=== PATIENT | male | born 1945 | race Caucasian/White ===

== ENCOUNTER 2018-02-09 12:42 | Inpatient (IN) ==
[2018-02-09] MEDS ORDERED: ASPIRIN PR ONE (13:01)
[2018-02-09] MEDS ORDERED: ASPIRIN PO ONE (13:01)
--- NOTE | 2018-02-09 13:14 | Diag Imaging Result Doc PS360 ---
EXAM: CHEST-1 VIEW INDICATION: palpitations TECHNIQUE: One view COMPARISON: None. FINDINGS: The lung volumes are low. Central vasculature is prominent. This indicates pulmonary venous congestion. There is also evidence of at least mild interstitial edema. There is opacification of the left lung base suggesting a small to moderate-sized effusion. Cardiac silhouette is somewhat prominent. IMPRESSION: Findings suggesting pulmonary venous congestion and interstitial edema with a left basilar effusion as described. Electronically signed by Lyndon Hardy 02/09/2018 1:11 PM
[2018-02-09] MEDS ORDERED: LASIX IV ONE (13:30)
[2018-02-09 14:27] LABS: BASO# 0.04 X1000 (0.0-0.2); BASO% 0.4 % (0.0-0.8); EOS# 0.19 X1000 (0.0-0.7); EOS% 1.7 % (0.0-10.0); HEMATOCRIT 29.9 % (42.0-52.0); HEMOGLOBIN 9.5 g/dL (14.0-18.0); IMM GRAN# 0.09 X1000 (0.0-0.04); IMM GRAN% 0.8 % (0.0-0.5); LYMPH# 1.38 X1000 (1.2-3.4); LYMPH% 12.6 % (20.5-51.1); MCH 28.4 PG (27-31); MCHC 31.8 g/dL (33-37); MCV 89.3 FL (81-99); MONO# 1.25 X1000 (0.11-0.59); MONO% 11.4 % (1.7-9.3); MPV 12.5 FL (7.4-10.4); NEUT# 8.02 X1000 (1.4-6.5); NEUT% 73.1 % (42.2-75.2); PLT 224 X1000 (130-400); RBC 3.35 XMIL (4.7-6.1); RDW 19.6 % (11.5-14.5); WBC 10.97 X1000 (4.8-10.8)
[2018-02-09 14:31] LABS: INR 1.33; PROTIME 17.5 Seconds (11.0-16.0); PTT 35.9 Seconds (22.3-41.8)
[2018-02-09 14:38] LABS: ALB/GLOB RATIO 1.1; ALBUMIN 3.1 g/dL (3.5-5.0); CALCIUM 8.2 mg/dL (8.8-10.2); CREATININE 1.3 mg/dL (0.7-1.2); POTASSIUM 2.8 mmol/L (3.5-5.1); TOTAL BILIRUBIN 1.56 mg/dL (0.20-1.00); TOTAL PROTEIN 5.9 g/dL (6.3-8.3)
[2018-02-09] MEDS ORDERED: POTASSIUM CHLORIDE 40 MEQ/SWI 40 MEQ/100 ML IVPB IV ONE (14:58)
[2018-02-09] MEDS ORDERED: POTASSIUM CHLORIDE 60 MEQ in NS 500 ML IV ONE (15:25)
--- NOTE | 2018-02-09 15:37 | Diag Imaging Result Doc PS360 ---
EXAM: XRAY PELVIS W/HIP 2-3VW RT INDICATION: right hip pain; r/o fracture TECHNIQUE: 3 views COMPARISON: None. FINDINGS: There is degenerative arthropathy at both hips with joint space narrowing and small marginal osteophyte formation. There is degenerative arthropathy at the lower lumbar spine. There is no discrete fracture, dislocation, or significant intrinsic osseous lesion, otherwise. The surrounding soft tissues are essentially unremarkable. IMPRESSION: Degenerative changes but no evidence of fracture. Electronically signed by Lyndon Hardy 02/09/2018 3:34 PM
[2018-02-09] MEDS ORDERED: LOVENOX 1 MG/KG SUBQ ONE ×2 (16:41→17:03)
[2018-02-09] MEDS: LASIX IV SCH (17:00)
--- NOTE | 2018-02-09 17:29 | Diag Imaging Result Doc PS360 ---
EXAM: FOOT COMPLETE RIGHT INDICATION: wounds to right 2cd and 5th toe TECHNIQUE: 3 views COMPARISON: None. FINDINGS: There is degenerative arthropathy at multiple IP joints, the first MTP joint, and at the dorsum of the midfoot. There is ossification of the plantar fascia just inferior to the calcaneus. I can identify no well-defined erosion involving the second for the fifth toe by plain radiograph to indicate osteomyelitis. There is no discrete fracture, dislocation, or significant intrinsic osseous lesion, otherwise. There is generalized soft tissue edema at the dorsum of the foot. IMPRESSION: Significant soft tissue edema and degenerative changes but no definite acute osseous abnormality. Electronically signed by Lyndon Hardy 02/09/2018 5:27 PM
--- NOTE | 2018-02-09 17:37 | HISTORY AND PHYSICAL ---
PRIMARY CARE PHYSICIAN: Dr. López Osborne. CHIEF COMPLAINT: "I just don't feel good." HISTORY OF PRESENT ILLNESS: Mr. Stevens is a 72-year-old male with recently diagnosed systolic heart failure, diabetes mellitus, hypothyroidism, who presents to the ER with symptoms of not feeling well. The patient is unable to really specify exactly what he means by that. A thorough review of systems does reveal profound edema, shortness of breath, malaise, abdominal distention. Mr. Stevens has not seen a provider in 50 years, per his report, until November of this year. He went to see Dr. Osborne. He was put on metformin for diabetes and Synthroid for hypothyroidism. He also had an echocardiogram done for swelling, which showed an EF of 20%. He went back in December to Dr. Osborne, who stopped the metformin due to edema and adjusted his cardiac medications. Since that time, Mr. Stevens has had continued edema, abdominal distention, and he is also having urinary hesitancy and low urine flow. He denies any overt chest pain, no fever, and no chills. He is short of breath and extremely edematous. He denies any overt abdominal pain but does endorse abdominal distention. No vomiting. No diarrhea. There are some loose stools, per his report. When he got to the ER today, he had multiple labs and diagnostics done. He was noted to be in congestive heart failure with evidence of such on chest x-ray, also with the proBNP of almost 7000. He was noted to have mild renal insufficiency as well as elevated liver functions. He was also noted to be hypokalemic and anemic. EKG does reveal atrial fibrillation, which is new for the patient. So, overall the patient has new onset congestive heart failure and atrial fibrillation with multiple other medical problems and will need admission to the CICU for comprehensive workup. PAST MEDICAL HISTORY: 1. Recent diagnosis of systolic heart failure. 2. Recent diagnosis of diabetes mellitus. 3. Recent diagnosis of hypothyroidism. 4. Reports of hepatitis as a teenager for which he had a liver biopsy. He does not know which specific hepatitis he had. PAST SURGICAL HISTORY: Liver biopsy. SOCIAL HISTORY: He denies having ever used tobacco products. He drinks very rarely. Denies drug use. Family is at the bedside. FAMILY HISTORY: Significant for coronary artery disease and congestive heart failure in his father. His father at 89 years old. REVIEW OF SYSTEMS: A thorough 14-point review of systems is obtained and found to be negative with the exception of the HPI. HOME MEDICATIONS: Bumex 1 mg b.i.d., glimepiride 1 mg p.o. a.m., Synthroid 50 mcg daily, lisinopril 5 mg p.o. a.m., Toprol XL 25 mg p.o. daily, Aldactone 12.5 mg p.o. a.m. ALLERGIES: No known drug allergies. PHYSICAL EXAMINATION: VITAL SIGNS: Blood pressure is 90/62, heart rate is 88, respiratory rate 18, O2 saturation is 95% on room air, temperature is 98 degrees Fahrenheit. GENERAL: This is a morbidly obese, male, who is disheveled and in poor health, lying in the hospital bed in no acute distress. NEUROLOGICAL: He follows commands. He is oriented. Exam is nonfocal. HEENT: Head is atraumatic and normocephalic. Pupils are equal, round and reactive to light. Oral mucosa is moist. NECK: Trachea is midline. CHEST: Crackles in the lung bases. Slight increased work of breathing noted. CARDIOVASCULAR: Irregular rate and rhythm. S1 and S2 is noted. GASTROINTESTINAL: Distended with anasarca noted. There is also bladder distention but no overt tenderness to palpation. Bowel sounds are hypoactive. EXTREMITIES: Greater than 2+ pitting edema bilaterally. He has multiple wounds to the right foot, specifically the right second toe and between the fourth and fifth toe. These appear as ulcerations and possibly with some eschar or necrotic tissue. DIAGNOSTIC DATA: Chest x-ray shows low lung volumes, pulmonary vascular congestion. Hip and pelvis x-ray shows degenerative changes, but no overt fracture. Telemetry shows atrial fibrillation, rate controlled, awaiting EKG. WBC is 10.97, hemoglobin 9.5, hematocrit 29.9, platelet count 224. INR 1.33. Sodium 141, potassium 2.8, chloride 101, CO2 24, anion gap 16, BUN 26, creatinine 1.3, glucose 121, calcium 8.2. Total bilirubin 1.56, AST 13, ALT 8, alkaline phosphatase 71. Troponin 0.076. proBNP 6707. Protein 5.9, albumin 3.1. ASSESSMENT AND PLAN: 1. Acute systolic congestive heart failure: The patient had an echocardiogram done about two months ago, which showed global hypokinesis with an ejection fraction of 20% . He will need comprehensive cardiac evaluation. We have consulted Cardiology. We will continue to trend his enzymes. Will continue intravenous diuresis to an edema free state. Will check his thyroid function, lipid panel, and hemoglobin A1c. Will check iron studies, as he is anemic. Will continue to watch his telemetry and will consult nutrition for heart failure diet. 2. New onset atrial fibrillation: Rate is controlled. Trending enzymes, checking thyroid function, echocardiogram noted as above. Will consult Cardiology. Given his comorbidities his MARIA DOLORES score is elevated, which would indicate the need for anticoagulation, however given his anemia with a hemoglobin of 9.5, will check his iron studies and occult stool. There is likely a large element of anemia of chronic disease. 3. Acute kidney injury: This is likely to be chronic. Creatinine only noted to be 1.3. Will check urine studies and abdominal ultrasound. 4. Hypokalemia: Will check a magnesium. Continue replacement as needed and check electrolytes daily given the amount of diuresis given. 5. Elevated liver function tests: The patient does have an elevated INR as well as reported history of hepatitis. It is unclear if he has a form of viral hepatitis, however he also has clear congestive heart failure, so congestive hepatopathy is likely. Hepatitis panel is pending as well as an abdominal ultrasound to look at his liver. He denies any history of intravenous drug use or history of alcohol use. 6. Normocytic anemia: Iron studies pending. Denies melena or hematochezia. Will check occult stool as well. 7. Diabetes mellitus: Checking hemoglobin A1c. Will add patterned sugars and sliding scale insulin. 8. Right foot ulcers: This is likely to be diabetic ulceration. Will check an x-ray of his foot to rule out osteomyelitis or fractures and treat as necessary. 9.Bladder distention and urinary hesitancy: Checking a PSA as well as bladder scan. Will put in a Archuleta if volume is large, which on physical exam appears to be. Deep venous thrombosis prophylaxis with Lovenox. Further recommendations to follow. Dictated by EULOGIO Lisa for Dayday Jaquez MD Addendum: Patient seen and examined by myself. Agree with EULOGIO note. It reflects my assessment and plan. Patient is being admitted to hospital for systolic congestive heart failure exacerbation. He is in anasarca and he has not been seen by a doctor in 40 years except his visit to PCP last november when all medical conditions were diagnosed. Will continue with Lasix and will monitor renal function closely. Also transaminases are elevated, most likely related to passive vascular congestion secondary to right heart failure. He also is on new onset atrial fibrillation. Will consult Cardiology. Also creatinine is mildy elevated. Will follow. Will continue with insulin for diabetes control. cc: EULOGIO Lisa MD Jeb S. Hornsby, MD MTDD
--- NOTE | 2018-02-09 17:55 | PROVIDER DOCUMENTATION ---
This chart was entered by Niya Crawford Scribe, acting as scribe for Alok Roland MD. HPI-General Adult - General Chief Complaint: Palpitations Stated Complaint: AFIB Time Seen by Provider: 02/09/18 13:01 Source: patient, family Allergies/Adverse Reactions: Patient Allergies Allergy/AdvReac Type Severity Reaction Status Date / Time No Known Allergies Allergy Verified 02/09/18 13:03 Home Medications: Home Medication List Medication Instructions Recorded Confirmed Last Taken Type Bumetanide 1 mg PO BID 02/09/18 02/09/18 1 Day Ago History ~02/08/18 Glimepiride 1 mg PO QAM 02/09/18 02/09/18 02/09/18 History Levothyroxine [Synthroid] 50 microgm PO DAILY 02/09/18 02/09/18 02/09/18 History Lisinopril 5 mg PO QAM 02/09/18 02/09/18 02/09/18 History Metoprolol Succinate E.r. [Toprol 25 mg PO DAILY 02/09/18 02/09/18 02/09/18 History Xl] Spironolactone 12.5 mg PO QAM 02/09/18 02/09/18 Unknown History - History of Present Illness -Gen Adult Nature of Presenting Problems: 72 yowm presents to the ed with his family via ems. pt speaks mostly for pt due to pt being hard of hearing. sts pt has c/o not feeling well for last few days with increased edema in abdomen and BLE edema and scrotal edema. pt has had n/v with decreased appetite and sob. pt looks to not feel Location of Pain/Injury: reports: generalized Quality of Pain: reports: aching Severity: reports: moderate Onset/Duration: reports: 3 days ago ("few days") Timing: reports: still present, constant Context/Activities at Onset: reports: light activity Modifying Factors: improves with: nothing Associated Symptoms: reports: fatigue, heartburn, loss of appetite, malaise, muscle aches, nausea, shortness of breath, vomiting, weakness, trouble walking. denies: back/neck pain, chest pain, cough, diarrhea, fever/chills, headaches Similar Symptoms Previously?: Yes Recently seen or treated by another doctor?: No (has an appointment tomorrow with pcp) - Diabetes Related Context Context: reports: high blood sugar Review of Systems - Adult - REVIEW OF SYSTEMS - ADULT ROS:: ROS per family (per ) Constitutional: reports: see HPI, fatique. denies: chills, fever Eyes: reports: no symptoms reported Ears, Nose, Mouth & Throat: reports: no symptoms reported Cardiovascular: reports: chest pain, edema. denies: syncope Respiratory: reports: see HPI, shortness of breath. denies: cough Gastrointestinal: reports: see HPI, abdominal pain (with edema), frequent heartburn, nausea, poor appetite, vomiting. denies: diarrhea Genitourinary: reports: see HPI, incontinence (wears a diaper), other (scotal edema) Musculoskeletal: reports: see HPI, muscle aches, muscle weakness. denies: neck pain Integumentary: reports: skin sores/ulcer (multiple on bilateral feet and left hand) Neurological: denies: dizziness/vertigo, headache/migraines, slurred speech, syncope, tremors Psychiatric: reports: no symptoms reported Endocrine: reports: no symptoms reported Hematologic/Lymphatic: reports: no symptoms reported Allergic/Immunologic: reports: no symptoms reported All Other Systems: Reviewed and Negative Past History - Adult - PAST MEDICAL HISTORY-ADULT Review of Records: reports: Old Records Reviewed, Nursing Assessment Review, Medications Reviewed, Social history reviewed & non-contributory. Major Childhood Illnesses: reports: other (hepatitis) Cardiovascular: reports: A-Fib, HTN, hyperlipidemia Respiratory: reports: denies history Gastrointestinal: reports: GERD Genitourinary: reports: kidney disease Musculoskeletal: reports: arthritis Hand Dominance: Right Handed Neurological: reports: denies history Psychiatric: reports: denies history Endocrine/Immune: reports: Diabetes, thyroid disorder Diabetes Type: Type 2 Other Conditions: reports: deaf/hard of hearing - PRIOR SURGERIES/PROCEDURES Surgical/Procedure History: reports: reviewed, not pertinent - IMMUNIZATION STATUS Childhood Immunizations: See Nurse Assessment Flu Vaccine: See Nurse Assessment - FAMILY HISTORY Family History: reviewed, not pertinent - SOCIAL HISTORY Smoking: denies Substance Use: denies Living Situation: family Physical Exam-General - PHYSICAL EXAM-ADULT Initial Vital Signs Reviewed: Yes - CONSTITUTIONAL General Appearance: alert, moderate distress, obese, slow to respond, other ( debilitated looking). negative: appears well - EYES Eyes: PERRL/EOMI, pale conjunctivae - HEAD, EARS, NOSE, MOUTH & THROAT HENMT: dental decay. negative: moist mucous membranes - NECK Neck: full range of motion, normal inspection - RESPIRATORY Respiratory: chest non-tender, lungs clear, normal breath sounds - CARDIOVASCULAR Cardiovascular: normal peripheral pulses, regular rate, rhythm - CHEST (BREASTS) Chest/Breast: deferred - GASTROINTESTINAL (ABDOMEN) Abdominal Exam: normal bowel sounds, soft, distended, tenderness (generalized). negative: rigid, rebound - GENITOURINARY Male Genitalia: scrotal swelling. negative: herpes-like lesion Rectal Exam: deferred Hemoccult Exam: deferred - LYMPHATIC Lymphatic: no adenopathy - MUSCULOSKELETAL Back Exam: normal inspection, no CVA tenderness, no vertebral tenderness Extremity: erythema (BLE), pedal edema (bilateral), swelling (BLE 4+ pitting , extending all the way to groin and abdominal wall), other (nails on bilateral feet ae thick and brown, pt has multiple sores on feet in diffrent stages of healing) - SKIN Integumentary: warm/dry - NEUROLOGIC Neurologic: grossly normal - PSYCHIATRIC Psych/Mental Status: oriented x 3 Progress - PLAN OF CARE/RESULTS Progress/Plan/Lab Results: Vital Signs - 8 hr 02/09/18 12:42 02/09/18 13:18 Temperature 98.1 F Pulse Rate 89 82 Respiratory Rate 16 18 Blood Pressure 108/76 O2 Sat by Pulse Oximetry 95 93 L Orders Category Date Time Status Cardiac Monitoring DIRECTED Care 02/09/18 13:01 Active Oxygen Therapy- ED Nursing DIRECTED Care 02/09/18 13:01 Active Saline Loc NOW Care 02/09/18 13:01 Active CHEST-1 VIEW [RAD] Stat Exams 02/09/18 13:01 Completed CBC WITH ELECTRONIC DIFF [HEME] Stat Lab 02/09/18 13:02 Ordered CK PROFILE [SP CHEM] Stat Lab 02/09/18 13:02 Ordered COMPREHENSIVE METABOLIC PANEL [CHEM] Stat Lab 02/09/18 13:02 Ordered PRO B-NATRIURETIC PEPTIDE Stat Lab 02/09/18 13:02 Ordered PROTIME WITH INR [COAG] Stat Lab 02/09/18 13:02 Ordered PTT [COAG] Stat Lab 02/09/18 13:02 Ordered TROPONIN T Stat Lab 02/09/18 13:02 Ordered Aspirin Med 02/09/18 13:01 Discontinued 300 mg VA NOW ONE Aspirin Med 02/09/18 13:01 Discontinued 325 mg PO NOW ONE Furosemide [Lasix] Med 02/09/18 13:30 Discontinued 80 mg IV NOW ONE CP/SOB/Palp >45 yrs of Age Stat Oth 02/09/18 13:01 Ordered EKG [EKG] Stat Ther 02/09/18 12:47 Ordered Result Diagrams: 02/09/18 13:03 02/09/18 13:03 - REASSESSMENT Reassessment #1 Time Reassessed: 13:50 Status: unchanged (provider at bedside) - EKG 1 Time of EKG reading by physician:: 12:44 EKG Read and Signed by:: Alok Roland EKG Interpretation (*Must complete 3 of following elements*): Abnormal Rate: 92 Rhythm: atrial fib [place]: normal QRS: other (low voltage qrs) VA Interval: normal Comments: annot rule out inferior or anterior infarct, age undetermined - XRAY 1 XRAY: Bilateral XRAY Study: Chest (EXAM: CHEST-1 VIEW INDICATION: palpitations TECHNIQUE: One view COMPARISON: None. FINDINGS: The lung volumes are low. Central vasculature is prominent. This indicates pulmonary venous congestion. There is also evidence of at least mild interstitial edema. There is opacification of the left lung base suggesting a small to moderate-sized effusion. Cardiac silhouette is somewhat prominent. IMPRESSION: Findings suggesting pulmonary venous congestion and interstitial edema with a left basilar effusion as described. Electronically signed by Lyndon Hardy 02/09/2018 1:11 PM 02/09/18 1311 Interpreting Physician: Lyndon Hardy MD Dictated Date/Time: 1310 cc: Mani Hobson MD; López Osborne MD) - CONSULTS/PCP/HOSPITALIST Notification #1 *Consult/PCP/Hospitalist*: CHRISTINE Parry/Dr. Morgan Time Discussed: 15:23 Consult Disposition: Admit Departure - Departure Date of Disposition Decision: 02/09/18 Time of Disposition Decision: 15:23 DIAGNOSIS: Anasarca, Hypokalemia Pulmonary edema Qualifiers: Chronicity: acute Qualified Code(s): J81.0 - Acute pulmonary edema Disposition: ADMITTED INPATIENT 09 Certified Medical Emergency: Emergent Condition: Serious Referrals and Follow-Ups: López Osborne MD [Primary Care Provider] - - Critical Care Note This patient required my direct & personal management of CC.: Yes Total Time (mins): 42 Critical Care Statement: This patient required my direct personal management to treat or rule out processes, the absence of which, could potentiallly result in sudden, clinically significant life or limb threatening deterioration. Attestation - Physician/ ANNA Attestation Patient care was provided by Advanced Practice Provider:: No The physician spent face to face time with patient:: Yes Advanced Practice Provider documentation review:: Supervising physician onsite and consulted in the evaluation and care of this patient. The physician did have a face to face encounter with the patient. This chart was documented by the indicated scribe, (Niya Crawford Scribe) and accurately reflects the services I performed and decisions made by me, Alok Roland MD, as attested by the provider's signature.
[2018-02-09 18:24] LABS: HEMOGLOBIN A1C 5.8 % (4.8-6.0)
[2018-02-09 18:48] LABS: IRON SATURATION 9 %; TIBC 265 ug/dL; TOTAL IRON 23 ug/dL (53-167); UNBOUND IRON 242 ug/dL (112-346)
[2018-02-09 19:16] LABS: UR CREAT RANDOM 42.3 mg/dL (14-26); UR PROT RANDOM 9.1 mg/dL
[2018-02-09] MEDS: DUONEB (A & A) INH SCH ×2 (19:26→23:18)
[2018-02-09] MEDS ORDERED: LOVENOX SUBQ ONE (19:30)
[2018-02-09] MEDS: HUMULIN R SUBQ SCH (21:00)
[2018-02-10] MEDS ORDERED: ZOFRAN ONE (00:17)
[2018-02-10] MEDS ORDERED: ZOFRAN IV ONE (01:10)
[2018-02-10 01:22] LABS: ALLEN TEST YES; BE 9.4 mmoll (-3.0-3.0); BLOOD TYPE ARTERIAL; HCO3-(ACT) 32.3 mmoll (20.0-26.0); METHB 0.6 % (0.0-1.5); MODALITY CANNULA; O2(CT) 12.8 mL/dL (15.0-23.0); PCO2(98.6) 37 mmHg (35-45); PO2(98.6) 78 mmHg (60-100); SAMPLE BLOOD; SAO2 98.7 % (95.0-100.0); THB 9.4 g/dL (11.5-17.4); pH(98.6) 7.55 (7.35-7.45)
[2018-02-10] MEDS: DUONEB (A & A) INH SCH ×5 (03:21→23:05)
[2018-02-10 05:42] LABS: BASO# 0.03 X1000 (0.0-0.2); BASO% 0.3 % (0.0-0.8); EOS# 0.05 X1000 (0.0-0.7); EOS% 0.5 % (0.0-10.0); HEMATOCRIT 28.4 % (42.0-52.0); HEMOGLOBIN 8.8 g/dL (14.0-18.0); IMM GRAN# 0.07 X1000 (0.0-0.04); IMM GRAN% 0.6 % (0.0-0.5); LYMPH# 1.32 X1000 (1.2-3.4); LYMPH% 12.1 % (20.5-51.1); MCV 90.4 FL (81-99); MONO# 1.14 X1000 (0.11-0.59); MONO% 10.5 % (1.7-9.3); MPV 12.2 FL (7.4-10.4); NEUT# 8.29 X1000 (1.4-6.5); PLT 241 X1000 (130-400); RBC 3.14 XMIL (4.7-6.1); RDW 19.8 % (11.5-14.5)
[2018-02-10] MEDS: LASIX IV SCH ×2 (06:28→17:37)
[2018-02-10] MEDS: HUMULIN R SUBQ SCH ×4 (07:00→20:43)
--- NOTE | 2018-02-10 07:07 | Diag Imaging Result Doc PS360 ---
EXAM: CHEST-PORTABLE 02/10/2018 HISTORY: Dyspnea TECHNIQUE: AP portable at 0122 COMMENT: There is hazy opacity in both lower lung krishnamurthy with obscuration of the left hemidiaphragm and heart border. These findings were also present at the time the previous study of 02/09/2018 however there is slightly worsened opacification in the right costophrenic angle region. IMPRESSION: Pulmonary edema and/or pneumonia slightly worsened. Electronically signed by Enrico Mohan 02/10/2018 7:05 AM
--- NOTE | 2018-02-10 07:20 | EKG Report ---
Test Performed on : 02/09/2018 12:44:02 PM Test Reason : elevate hr Blood Pressure : / mmHG Vent. Rate : 092 BPM Atrial Rate : 108 BPM P-R Int : 000 ms QRS Dur : 092 ms QT Int : 376 ms P-R-T Axes : 000 -10 167 degrees QTc Int : 464 ms Atrial fibrillation. Low voltage QRS Cannot rule out Inferior infarct , age undetermined Cannot rule out Anterior infarct , age undetermined Abnormal ECG No previous ECGs available Unconfirmed Result
--- NOTE | 2018-02-10 08:22 | Diag Imaging Result Doc PS360 ---
EXAM: US ABDOMEN-COMPLETE 02/10/2018 HISTORY: ascites, domenic, elevated lfts TECHNIQUE: Abdominal ultrasound COMMENT: There is antegrade flow in the portal vein. The pancreas is obscured. The visualized portions of the aorta and inferior vena cava are within normal limits. The gallbladder contains small stones in the fundus. There is no evidence of para cholecystic fluid. There is no sonographic Louie sign. There is dilatation of the common bile duct to almost 9 mm. The kidneys are without evidence of hydronephrosis or mass, there is an 11 mm cyst in the upper pole of the right kidney. The spleen is not enlarged. The liver is otherwise unremarkable in appearance. IMPRESSION: Cholelithiasis. No evidence of obstructive uropathy. Dilatation of the common bile duct of uncertain etiology. Electronically signed by Enrico Mohan 02/10/2018 8:20 AM
--- NOTE | 2018-02-10 08:28 | PROGRESS NOTE ---
DATE: 02/10/2018 SUBJECTIVE: The patient notes that he just feels awful. States he feels terrible. He is unable to quantify any of this. Denies any chest pains or palpitations. Denies any fevers or chills. Denies any diarrhea, constipation, Denies any urologic problems. Denies any pain or palpitations. Denies shortness of breath. PHYSICAL EXAMINATION: Vital Signs: He is afebrile, pulse 102, respiratory rate 74, BP 104/73. General: The patient is awake, alert, and oriented. He is in no current respiratory distress. HEENT: Normocephalic and atraumatic. PERRL. Neck: Supple. Cardiovascular: Regular rate. Chest: Decreased breath sounds bilaterally. Extremities: There is 2+ pitting edema in bilateral lower extremities. Labs: Reviewed. ASSESSMENT: 1. Diastolic congestive heart failure in exacerbation. Patient had 4 liters out negative yesterday. 2. Onset atrial fibrillation. Currently rate controlled. 3. Hypokalemia improved. 4. Diabetes. 5. Right foot ulceration. PLAN: We will continue the patient in the hospital. Continue IV Lasix. Cardizem as needed. Continue to follow his clinical course. Expect that he will be in the hospital 3 to 4 more days. cc: Da Vásquez MD MTDD
[2018-02-10 08:45] LABS: ALB/GLOB RATIO 0.9; ALBUMIN 2.7 g/dL (3.5-5.0); CALCIUM 7.5 mg/dL (8.8-10.2); CREATININE 1.3 mg/dL (0.7-1.2); POTASSIUM 2.8 mmol/L (3.5-5.1); TOTAL BILIRUBIN 1.83 mg/dL (0.20-1.00); TOTAL PROTEIN 5.8 g/dL (6.3-8.3)
[2018-02-10] MEDS ORDERED: ZOFRAN IV PRN (08:50)
[2018-02-10] MEDS ORDERED: ASPIRIN PO SCH (09:00)
[2018-02-10] MEDS: TOPROL XL PO SCH (11:26)
[2018-02-10] MEDS: SYNTHROID PO SCH (11:27)
[2018-02-10] MEDS: PRINIVIL PO SCH (11:27)
[2018-02-10 11:32] LABS: HEPATITIS PROFILE ACUTE SEE COMMENTS
--- NOTE | 2018-02-10 12:01 | CARDIOLOGY CONSULTATION ---
DATE: 02/10/2018 REASON FOR CONSULTATION: Patient is admitted with multiple medical problems. Cardiology was consulted for severe LV dysfunction, atrial fibrillation. HISTORY OF PRESENT ILLNESS: Mr. Stevens is a 72-year-old gentleman with history of recent diagnosis of severe LV dysfunction, hypothyroid, diabetes, and heart failure. He comes in with increasing swelling, shortness of breath, and malaise. He has not seen a family physician for the last 50 years, recently had seen Dr. Osborne in the office. His recent echocardiogram revealed ejection fraction of 20%. Medications were adjusted. The patient came in with increasing symptoms of shortness of breath and pedal edema. He denies chest pain. Over the last few years, he had not had any chest pain. However, he had noticed that he was mildly short of breath, which recently worsened. There is no palpitations. There is no dizziness or syncope. He was noted to be hypokalemic and in atrial fibrillation as well. REVIEW OF SYSTEMS: A 14-point review of system was done.GI System: Patient had episode of what sounds like food poisoning, and he had significant nausea and vomiting prior to coming here, and they had eaten outside. However, no hematemesis or melena. Central nervous system: No focal weakness to suggest a CVA or TIA. System: There is no dysuria or hematuria. Respiratory System: There is no history of cough, fevers, or chills. PAST MEDICAL HISTORY: 1. Severe LV dysfunction, new, recent diagnosis of systolic heart failure. 2. Hypothyroidism. 3. Hepatitis as a teenager. PAST SURGICAL HISTORY: Liver biopsy. HOME MEDICATIONS: All started recently include Bumex 1 b.i.d., glimepiride 1, Synthroid 50, lisinopril 5, Toprol-XL 25, Aldactone 12.5. ALLERGIES: He is not known to be allergic to any medication. PHYSICAL EXAMINATION: Vital Signs: Blood pressure was 104/60. Neck: Jugular venous pressure was normal. Heart: First and second heart sounds were heard. There was no S3 gallop. Respiratory: Revealed scattered inspiratory crepitations. Abdomen: Was soft, obese, nontender. There was no guarding or rigidity. Bowel sounds were heard. Central nervous system: Alert, was moving all 4 extremities. Extremities: Revealed pitting pedal edema. Skin: In addition, patient had multiple unspecified eschars and ulcerations on his right second toe, fourth and fifth toes as well. DIAGNOSTIC DATA: 1. Chest x-ray reveals pulmonary venous congestion. Degenerative joint disease. 2. No fractures noted on the hip. 3. Electrocardiogram revealed atrial fibrillation, rate of 92 beats per minute. 4. WBC 10.97, hemoglobin 9.5, hematocrit 29, platelet count of 224. INR 1.3. Sodium 141, potassium 2.8, BUN 26, creatinine 1.3. ProBNP 6707. Bilirubin 1.56, AST 13, ALT 8, alkaline phosphatase 71. Troponin negative. ASSESSMENT AND PLAN: Mr. Eric Stevens is a 72-year-old gentleman, who had recently seen Dr. Osborne in the office. Had not seen a physician in the last 50 years, was recently diagnosed to have heart failure, severe left ventricular dysfunction of ejection fraction of 20%, diabetes, and hypothyroidism as a child. He has also had hepatitis. He is admitted with increasing shortness of breath, was given Lasix, and had a good amount of diuresis of 5 liters and currently, he is on Lasix 40 mg twice daily. RECOMMENDATIONS: 1. He has severe LV dysfunction, and this probably has been for some time. The recent echocardiogram revealed ejection fraction of 20%. We will start him and put him back on his lisinopril as well as Toprol-XL and Aldactone 25 mg a day. 2. As far as atrial fibrillation, concern could be multifactorial. He has severely hypokalemic, and given his LV dysfunction as well, this may either be paroxysmal. I have no other EKG to compare with or it may be triggered with severe hypokalemia. His potassium is being repleted, and will be checked routinely. 3. As far as anticoagulation is concerned, there is no obvious GI bleed. This could be anemia of chronic disease. However, stool occult blood and iron studies are pending and once there is no bleeding, would recommend anticoagulation therapy with Eliquis for stroke prophylaxis. 4. He has features of wound ulcers on his lower extremities. Probably also has peripheral vascular disease. Would recommend investigations pertaining to that. 5. From a cardiac standpoint, once he is euvolemic, we will also plan for a Cardiolite stress test to assess for and rule out ischemia. He does not complain of any chest pains. His states that he had not complained to her about any chest pains over the last few years either. Thank you for the consult. We will follow hospital course. cc: Rock Orantes MD
[2018-02-10] MEDS: POTASSIUM CHLORIDE 20 MEQ/SWI 20 MEQ/100 ML IVPB IV SCH ×2 (12:07→14:03)
[2018-02-10 13:08] LABS: URINE SOURCE CATH
[2018-02-10 13:11] LABS: BILIRUBIN URINE NEGATIVE (NEGATIVE); BLOOD URINE SMALL (NEGATIVE); COLOR YELLOW; GLUCOSE URINE NEGATIVE (NEGATIVE); KETONE URINE NEGATIVE (NEGATIVE); LEUKOCYTES URINE SMALL (NEGATIVE); NITRITE URINE NEGATIVE (NEGATIVE); PH URINE 6.5; PROTEIN URINE TRACE mg/dL (NEGATIVE); SP GRAVITY URINE 1.009; TURBIDITY URINE CLEAR (CLEAR); UROBILINOGEN URINE NORMAL (NORMAL)
[2018-02-10 13:12] LABS: UR EPITHELIAL CELLS <10 /HPF (<10); URINE BACTERIA NEGATIVE /HPF; URINE WBC <10 /HPF (<10)
--- NOTE | 2018-02-10 14:52 | Diag Imaging Result Doc PS360 ---
EXAM: US ABDOMEN-COMPLETE HISTORY: repeat; PAIN TECHNIQUE: Abdominal ultrasound COMPARISON: None. FINDINGS: Difficult exam due to the patient's large size and refusal to aid during the exam. Normal right kidney. No hydronephrosis. The spleen is not enlarged. Normal left kidney. No hydronephrosis. There is a small amount of fluid about the liver and spleen. No focal hepatic abnormality. There is sludge and small stones within the gallbladder. The gallbladder wall is not thickened. Normal inferior vena cava. The aorta and pancreas are poorly seen. IMPRESSION: 1.Sludge and small stones within the gallbladder 2.Small amount of abdominal ascites. Electronically signed by Armando Townsend 02/10/2018 2:49 PM
[2018-02-10] MEDS: ALDACTONE PO SCH (15:36)
--- NOTE | 2018-02-11 04:37 | PROGRESS NOTE ---
DATE: 02/10/2018 SUBJECTIVE: The patient states that he is feeling bad. He denies any real shortness of breath, chest pain, or palpitations. Denies any real GI or issues. Unable to quantify or qualify other than the fact that he states that he feels bad. PHYSICAL EXAMINATION: Vital Signs: He is afebrile, pulse 102, respiratory rate 14, BP 104/73. General: The patient is awake, alert. He is lying in the bed. He is currently in no respiratory distress. HEENT: Normocephalic. Neck: Supple. Cardiovascular: Irregular rate, irregular rhythm. No murmurs. Chest: Clear and unlabored. No wheezing. No crackles. Abdomen: Soft. Distended but no worse than yesterday. Positive anasarca. Extremities: He has 2+ pitting edema in bilateral lower extremities. There are multiple wounds on the right foot, that is currently bandaged. ASSESSMENT: 1. Acute systolic congestive heart failure with an ejection fraction of 20%. 2. New onset atrial fibrillation. Currently on Cardizem. 3. Acute kidney injury. 4. Hypokalemia. 5. Type 2 diabetes. PLAN: The patient currently is on Lasix 40 IV q.12. He had 4000 mL negative out yesterday. We will continue Lasix. Continue to follow. I expect the patient to be in the hospital several more days. We will follow his heart rate and hopefully continue control. cc: Da Vásquez MD
[2018-02-11] MEDS ORDERED: NORCO-5 PO PRN (05:34)
[2018-02-11] MEDS: DUONEB (A & A) INH SCH ×6 (05:56→23:31)
[2018-02-11] MEDS: HUMULIN R SUBQ SCH ×4 (05:59→20:48)
[2018-02-11 07:04] LABS: BASO# 0.05 X1000 (0.0-0.2); BASO% 0.5 % (0.0-0.8); EOS# 0.14 X1000 (0.0-0.7); EOS% 1.3 % (0.0-10.0); HEMATOCRIT 26.8 % (42.0-52.0); IMM GRAN# 0.08 X1000 (0.0-0.04); IMM GRAN% 0.7 % (0.0-0.5); LYMPH# 1.53 X1000 (1.2-3.4); MCH 27.9 PG (27-31); MCHC 29.9 g/dL (33-37); MCV 93.4 FL (81-99); MONO# 1.46 X1000 (0.11-0.59); MONO% 13.3 % (1.7-9.3); MPV 11.6 FL (7.4-10.4); NEUT# 7.69 X1000 (1.4-6.5); NEUT% 70.2 % (42.2-75.2); PLT 252 X1000 (130-400); RBC 2.87 XMIL (4.7-6.1); RDW 19.8 % (11.5-14.5); WBC 10.95 X1000 (4.8-10.8)
[2018-02-11 07:16] LABS: ALB/GLOB RATIO 0.8; ALBUMIN 2.6 g/dL (3.5-5.0); CALCIUM 7.6 mg/dL (8.8-10.2); CREATININE 1.2 mg/dL (0.7-1.2); POTASSIUM 2.8 mmol/L (3.5-5.1); TOTAL BILIRUBIN 1.76 mg/dL (0.20-1.00)
--- NOTE | 2018-02-11 09:39 | EKG Report ---
Test Performed on : 02/11/2018 08:26:11 AM Test Reason : afib Blood Pressure : / mmHG Vent. Rate : 104 BPM Atrial Rate : 113 BPM P-R Int : 000 ms QRS Dur : 092 ms QT Int : 374 ms P-R-T Axes : 000 -10 136 degrees QTc Int : 491 ms Atrial fibrillation. with rapid ventricular response. with premature ventricular or aberrantly conduc cami complexes. Possible Inferior infarct (cited on or before 09-FEB-2018) Anterior infarct (cited on or before 09-FEB-2018) Abnormal ECG When compared with ECG of 09-FEB-2018 12:44, (Unconfirmed) No significant change was found Confirmed by Justin SCHNEIDER, Jignesh Flores ([id number]) on 02/11/2018 7:40:50 PM
[2018-02-11] MEDS: LASIX IV SCH ×2 (09:42→21:46)
[2018-02-11] MEDS: TOPROL XL PO SCH (09:42)
[2018-02-11] MEDS: PRINIVIL PO SCH (09:42)
[2018-02-11] MEDS: ASPIRIN PO SCH (09:44)
[2018-02-11] MEDS: SYNTHROID PO SCH (09:44)
[2018-02-11] MEDS: ALDACTONE PO SCH (09:44)
[2018-02-11] MEDS: NORCO-5 PO PRN ×4 (09:46→22:37)
[2018-02-11] MEDS: POTASSIUM CHLORIDE 60 MEQ in NS 500 ML IV SCH ×2 (11:02→18:21)
--- NOTE | 2018-02-11 20:12 | PROGRESS NOTE ---
DATE: 02/11/2018 SUBJECTIVE: Patient reports breathing better, although not completely fine. OBJECTIVE: Vital Signs: Temperature is 98.2, heart rate 79, respiratory rate 18, blood pressure 102/66, O2 sat 99% on Venturi mask. General: This is a 72-year-old male, lying in bed, in no acute distress. HEENT: Head is normocephalic, atraumatic. Mucous membranes dry. Neck: No JVD noted. Cardiovascular: S1, S2 heard. No murmurs, gallops or rubs. Regular rate and rhythm. Respiratory: Some mild inspiratory crepitations still present in both pulmonary bases. Patient not using any accessory muscles or having work of breathing. Abdomen: Soft, nontender to palpation. Bowel sounds present. No organomegaly. Extremities: No clubbing or cyanosis. Edema 2+ in both lower extremities. In both upper extremities there is anasarca, but slightly better in comparing with admission. Neurologic: Patient is very hard of hearing, but alert and oriented x 3. Moves 4 extremities. LABORATORY DATA: White cell count 10.95, hemoglobin 8.0, hematocrit 26.8, platelets 252,000. Potassium 2.8, creatinine 1.2. ASSESSMENT AND PLAN: 1. Acute systolic congestive heart failure. The echocardiogram done 2 months ago showed ejection fraction of 20% with global hypokinesis. Cardiology has been consulted and the plan to continue with Lasix in this case, he is receiving 40 mg IV q.12 hours. He was recommended to continue with lisinopril and Toprol and also Aldactone. We will continue to monitor this patient closely. 2. Atrial fibrillation. That condition I think could be multifactorial because of the potassium that is very low and also his severe LV dysfunction makes him prone to develop this paroxysmal arrhythmia. In any case, the potassium is still very low 2.8, we are going to replete potassium and we will check BMP tomorrow. We will go from there. Also, we are going to continue with anticoagulation considering that there is no contraindications for that. 3. Peripheral vascular disease. Patient have some ulcers in both lower extremities. We will continue to monitor. 4. Hypokalemia. We will replete potassium today. 5. Transaminitis. Those are getting better. We will continue to monitor CMP. 6. Normocytic anemia. Aware. We will continue to monitor CBC. 7. Diabetes mellitus type 2. The patient is on sliding scale insulin and also Accu-Cheks before meals and also at bedtime. We will continue to monitor. cc: Dayday Jaquez MD MTDHenri
[2018-02-11] MEDS ORDERED: ALBUMIN 25% IV ONE (20:46)
[2018-02-12] MEDS: DUONEB (A & A) INH SCH ×6 (03:14→23:00)
[2018-02-12] MEDS: NORCO-5 PO PRN ×5 (03:47→20:31)
[2018-02-12] MEDS: HUMULIN R SUBQ SCH ×4 (06:25→20:44)
[2018-02-12 07:25] LABS: BASO# 0.03 X1000 (0.0-0.2); BASO% 0.3 % (0.0-0.8); EOS# 0.29 X1000 (0.0-0.7); EOS% 2.8 % (0.0-10.0); HEMATOCRIT 25.3 % (42.0-52.0); HEMOGLOBIN 7.5 g/dL (14.0-18.0); IMM GRAN# 0.06 X1000 (0.0-0.04); IMM GRAN% 0.6 % (0.0-0.5); LYMPH# 1.29 X1000 (1.2-3.4); LYMPH% 12.5 % (20.5-51.1); MCH 28.1 PG (27-31); MCHC 29.6 g/dL (33-37); MCV 94.8 FL (81-99); MONO# 1.15 X1000 (0.11-0.59); MONO% 11.1 % (1.7-9.3); MPV 11.6 FL (7.4-10.4); NEUT# 7.53 X1000 (1.4-6.5); NEUT% 72.7 % (42.2-75.2); PLT 253 X1000 (130-400); RBC 2.67 XMIL (4.7-6.1); RDW 19.7 % (11.5-14.5); WBC 10.35 X1000 (4.8-10.8)
[2018-02-12] MEDS: PRINIVIL PO SCH (08:02)
[2018-02-12] MEDS: TOPROL XL PO SCH ×2 (08:02→20:21)
[2018-02-12] MEDS: SYNTHROID PO SCH (08:02)
[2018-02-12] MEDS: ALDACTONE PO SCH (08:02)
[2018-02-12] MEDS: LASIX IV SCH ×2 (08:02→20:31)
[2018-02-12] MEDS: ASPIRIN PO SCH (08:02)
[2018-02-12 08:05] LABS: AGAP 10; ALB/GLOB RATIO 0.9; ALBUMIN 2.7 g/dL (3.5-5.0); ALKALINE PHOSPHATASE 67 U/L (32-122); BUN 26 mg/dL (8-22); CALCIUM 7.9 mg/dL (8.8-10.2); CHLORIDE 101 mmol/L (98-107); COSMO 290; CREATININE 1.1 mg/dL (0.7-1.2); ESTIMATED GFR > 60; GLUCOSE 137 mg/dL (70-104); GOT 15 U/L (10-34); GPT 9 U/L (10-44); MAGNESIUM 1.9 mg/dL (1.5-2.7); POTASSIUM 4.5 mmol/L (3.5-5.1); SODIUM 142 mmol/L (136-145); TCO2 31 mmol/L (25-35); TOTAL BILIRUBIN 1.49 mg/dL (0.20-1.00); TOTAL PROTEIN 5.6 g/dL (6.3-8.3)
[2018-02-12] MEDS ORDERED: ALBUMIN 25% IV ONE (11:34)
--- NOTE | 2018-02-12 14:10 | PROGRESS NOTE ---
DATE: 02/12/2017 SUBJECTIVE: Patient reports feeling better been basically has been stable since admission. Swelling in both lower extremities are getting slowly better. OBJECTIVE: Vitals: Temperature 97.8, heart rate 109, respiratory 20, blood pressure 107/70, O2 saturation 93% on 3 L nasal cannula. General: This is a chronically ill-looking 72-year-old male lying in bed in no acute distress. HEENT: Is normocephalic, atraumatic. Neck: No JVD noted. No carotid bruits. No lymphadenopathy. No thyromegaly. Cardiovascular: S1, S2 heard. No murmurs, gallops, or rubs. Regular rate and rhythm. Respiratory: Some mild next respiratory crepitation still present in both pulmonary bases but patient is not using any accessory muscles or having work of breathing. Abdomen: Soft, nontender to palpation, bowel sounds present. No organomegaly. Extremities: Edema 2+ in both lower extremities as well as upper extremities. There is anasarca but slightly better in comparing with previous days. Neurological: Patient is very hard of hearing but alert, oriented x3, moves 4 extremities. LABORATORY DATA: White cell count 10.35, hemoglobin 7.5, hematocrit 25.3, platelets 253,000. Renal function is normal, potassium 4.5, the hemoglobin A1c is actually 5.8, magnesium is normal. ASSESSMENT AND PLAN: 1. Acute systolic congestive heart failure. Clinically he is stable, anasarca is slowly getting better, will continue with Lasix 40 mg IV q.12 hours. He is having good urine output. Patient is also on Toprol, Aldactone, lisinopril and blood pressure has been range of 100s and high 90s so will continue with the same management. 2. Atrial fibrillation multifactorial. At this point do see that this patient is still on atrial fibrillation, patient is on anticoagulation in this case is admission he was placed on Lovenox 1 mg/kg every 12 hours, that has been discontinued by Cardiology and currently is on aspirin, will continue monitoring this patient closely. 3. Peripheral vascular disease aware. 4. Hypokalemia resolved. 5. Transaminitis. The ALT and AST is back to normal. 6. Normocytic anemia. Hemoglobin has dropped to 7.5, if he continues to drop near to 7 or below will transfuse 1 unit of blood. 7. Diabetes mellitus type 2. Will continue with sliding scale insulin. Hemoglobin A1c is 5.8 which makes me think about his diagnosis of diabetes, in any case will continue with sliding scale insulin and will continue to monitor. 8. Disposition. Patient is working with physical therapy, patient has been recommended to go to rehab. At this time we are planning to do Lexiscan stress test on Thursday. cc: Dayday Jaquez MD
[2018-02-13] MEDS: NORCO-5 PO PRN ×5 (00:27→20:50)
[2018-02-13] MEDS: DUONEB (A & A) INH SCH ×6 (03:00→23:00)
[2018-02-13] MEDS: HUMULIN R SUBQ SCH ×4 (06:07→20:50)
[2018-02-13 08:28] LABS: AGAP 11; ALBUMIN 2.9 g/dL (3.5-5.0); ALKALINE PHOSPHATASE 63 U/L (32-122); BUN 24 mg/dL (8-22); CALCIUM 8.1 mg/dL (8.8-10.2); CHLORIDE 99 mmol/L (98-107); COSMO 283; ESTIMATED GFR > 60; GLUCOSE 126 mg/dL (70-104); GOT 17 U/L (10-34); GPT 9 U/L (10-44); MAGNESIUM 1.9 mg/dL (1.5-2.7); POTASSIUM 3.6 mmol/L (3.5-5.1); SODIUM 139 mmol/L (136-145); TCO2 29 mmol/L (25-35); TOTAL BILIRUBIN 1.48 mg/dL (0.20-1.00); TOTAL PROTEIN 5.9 g/dL (6.3-8.3)
[2018-02-13] MEDS: TOPROL XL PO SCH ×2 (09:06→20:51)
[2018-02-13] MEDS: SYNTHROID PO SCH (09:06)
[2018-02-13] MEDS: ASPIRIN PO SCH (09:06)
[2018-02-13] MEDS: LASIX IV SCH (09:06)
[2018-02-13] MEDS: ALDACTONE PO SCH (09:06)
[2018-02-13 13:18] LABS: HEMATOCRIT 25.3 % (42.0-52.0); HEMOGLOBIN 7.4 g/dL (14.0-18.0); MCH 27.6 PG (27-31); MCHC 29.2 g/dL (33-37); MCV 94.4 FL (81-99); MPV 12.4 FL (7.4-10.4); RBC 2.68 XMIL (4.7-6.1); RDW 19.2 % (11.5-14.5); WBC 11.46 X1000 (4.8-10.8)
[2018-02-13] MEDS: OFIRMEV 1000 MG/ISOTONIC SOLN 1,000 MG/100 ML BOTTLE IV SCH ×2 (13:40→18:53)
[2018-02-13] MEDS: TORADOL IV SCH ×2 (13:40→18:52)
--- NOTE | 2018-02-13 15:51 | PROGRESS NOTE ---
DATE: 02/13/2018 SUBJECTIVE: Patient reports feeling better. Denies any shortness of breath and chest pain. OBJECTIVE: Vitals: Temperature 97.8 degrees, heart rate 119, blood pressure 99 /70, O2 saturation 99% on 2 L nasal cannula. General: This is a 72-year-old male lying in bed in no acute distress. HEENT: Head is normocephalic, atraumatic. Mucous membranes dry. Neck: No JVD noted. No carotid bruits, no lymphadenopathy, no thyromegaly. Cardiovascular: S1, S2 heard. No murmurs, gallops, or rubs. Regular rate and rhythm. Respiratory: Mild crepitation still present in both pulmonary bases but patient not using any accessory muscles or having work of breathing. Abdomen: Soft, nontender to palpation. Bowel sounds present. No organomegaly. Extremity: 2+ pitting edema in both lower extremity as well upper extremity and scrotal edema as well. Anasarca noted as we mentioned before same compared with yesterday. Neurological: Patient is very hard of hearing but oriented and alert x3, moves 4 extremities. LABORATORY DATA: White cell count 11.46, hemoglobin 7.4, hematocrit 25.3, platelets 259,000 with normal BMP and glucose 126. ASSESSMENT/PLAN: 1. Acute systolic congestive heart failure. Clinically he continues to improve. Anasarca is getting slowly better and considering that his renal function is okay will increase the dose of Lasix from 40 to 60 mg IV q.12 hours, apparently there has been reported Archuleta catheter that has been clogged up but finally this problem resolved and patient is making good urine. Will continue with same management. 2. Atrial fibrillation multifactorial, heart rate is well controlled. Patient is on aspirin as per Cardiology who has discontinued Lovenox, will continue to monitor this patient. 3. Peripheral vascular disease aware. 4. Hypokalemia, resolved. 5. Transaminitis, ALT and AST is completely back to normal. 6. Normocytic anemia. Hemoglobin has dropped to 7.4 today, I think that continues to drop will transfuse 1 unit of blood. 7. Diabetes mellitus type 2. Will continue with sliding scale insulin. Hemoglobin A1c is 5.8. 8. Disposition. I think this patient is doing fine. Physical therapy working with this patient. He will need to go to rehab. From medical standpoint he will have a Lexiscan stress test Thursday as per cardiology recommendation, will see what it shows. cc: Dayday Jaquez MD MTDD
[2018-02-13] MEDS: ENTRESTO 24 MG-26 MG TABLET PO SCH (20:50)
[2018-02-14] MEDS: OFIRMEV 1000 MG/ISOTONIC SOLN 1,000 MG/100 ML BOTTLE IV SCH ×4 (00:30→21:46)
[2018-02-14] MEDS: LASIX IV SCH ×2 (00:30→10:52)
[2018-02-14] MEDS: TORADOL IV SCH ×2 (00:30→06:35)
[2018-02-14] MEDS: NORCO-5 PO PRN (03:10)
[2018-02-14] MEDS: DUONEB (A & A) INH SCH ×6 (03:44→23:34)
[2018-02-14] MEDS: ATIVAN IV PRN (04:33)
[2018-02-14] MEDS: HUMULIN R SUBQ SCH ×4 (06:34→21:47)
[2018-02-14] MEDS: SYNTHROID PO SCH (06:35)
--- NOTE | 2018-02-14 08:59 | PROGRESS NOTE ---
DATE: 02/14/2018 SUBJECTIVE: I was called by the nurse to inform me that the patient has had massive black tarry stool compatible with melena. The patient has been agitated and complaining of abdominal pain. I went to see him immediately. He was confused. I talked with the at bedside and informed her that it looks like he had bleeding from the GI tract. OBJECTIVE: Vital Signs: Temperature 98.0 degrees, heart rate 89, respiratory rate 18, blood pressure 93/62, O2 saturation 100% on room air. General Examination: This is a chronically ill- looking, 72-year-old, male, lying in bed, in no acute distress. HEENT: Head is normocephalic and atraumatic. Neck: No JVD noted. No carotid bruits. No lymphadenopathy. Cardiovascular Examination: S1 and S2 heard. Tachycardic. No murmurs, gallops, or rubs. Regular rate and rhythm. Respiratory Examination: Mild crepitations still present in both pulmonary bases, same in comparing with previous days. The patient is not using any accessory muscles or having work of breathing. Abdomen: Soft. Definitely more distended and generalized tenderness to palpation. Bowel sounds present. No organomegaly noted. Extremities: There is 2+ pitting edema in both lower extremity as well upper extremities and scrotal edema as well. Anasarca noted, same in comparing with yesterday. Neurological Examination: The patient is definitely more sleepy, more confused. Moves 4 extremities. Patient is very hard of hearing. Laboratory Data: Unfortunately, those are still pending at the time of my dictation. From yesterday, hemoglobin was 7.6. At admission, it was 9.5. ASSESSMENT AND PLAN: 1. Gastrointestinal bleeding. This is a new problem for him. The patient has not been seen by a doctor in approximately 30 years. At this point, what we are going to do is to start a Protonix drip, transfuse 2 units of blood because the blood pressure is low and he is tachycardic. He may be bleeding actively now so we are going to send him to the intensive care unit. Consult gastroenterology. Because the abdomen is somewhat a little bit rigid, I prefer to go ahead and do a CT of the abdomen and pelvis with and without contrast. We will see what it shows. We will send this patient to the intensive care unit. 2. Atrial fibrillation, multifactorial. Heart rate is well controlled and the patient is in sinus rhythm. Not on any anticoagulation. He had been on Lovenox initially but it has been discontinued by cardiology and preferred to put him on aspirin. With this bleeding now, we will definitely prefer to stop aspirin. 3. Hypokalemia, resolved. 4. Transaminitis, resolved. 5. Anemia of blood loss. We are still waiting for the results of CBC but we will transfuse if needed. We will transfuse 2 units of blood considering that he had profuse melena. 6. Diabetes mellitus type 2. We will continue with sliding scale insulin. Accu-Chek before meals and also at bedtime. DISPOSITION: The patient is going to be transferred to the intensive care unit. CRITICAL CARE TIME: 45 minutes. cc: Dayday Jaquez MD
[2018-02-14 10:00] LABS: INR 1.39; PROTIME 18.1 Seconds (11.0-16.0)
[2018-02-14 10:12] LABS: HEMATOCRIT 27.5 % (42.0-52.0); HEMOGLOBIN 8.1 g/dL (14.0-18.0); MCH 27.6 PG (27-31); MCHC 29.5 g/dL (33-37); MCV 93.5 FL (81-99); MPV 11.4 FL (7.4-10.4); RBC 2.94 XMIL (4.7-6.1); RDW 19.6 % (11.5-14.5); WBC 15.12 X1000 (4.8-10.8)
[2018-02-14 10:26] LABS: CALCIUM 7.4 mg/dL (8.8-10.2); CREATININE 1.7 mg/dL (0.7-1.2); POTASSIUM 3.8 mmol/L (3.5-5.1)
[2018-02-14] MEDS: PROTONIX 80 MG in NS 80 ML IV SCH ×2 (10:50→17:35)
--- NOTE | 2018-02-14 11:22 | Diag Imaging Result Doc PS360 ---
EXAM: CT ABD/PELVIS W/PO AND IV CON 02/14/2018 HISTORY: GI bleed TECHNIQUE: This exam was performed using automated exposure control, adjustment of mA or kV according to patient size, and/or use of iterative reconstruction technique. COMMENT: There are no previous studies available for comparison. There are bilateral pleural effusions. There is compressive atelectasis in both lower lobes particularly the left lower lobe. There is anasarca with diffuse subcutaneous edema. There is ascites. The pancreas is atrophic in appearance. The spleen is not enlarged. The adrenal glands are unremarkable. The gallbladder is slightly distended. There are no apparent stones. The liver is not enlarged. There may be some nodularity consistent with cirrhosis however. There is some stool in the colon without evidence of dilatation or mucosal thickening. The small bowel is not distended and there is no evidence of mucosal thickening. There is atherosclerotic calcification in the aorta and its branches. There is no evidence of significant aneurysm. There is patency in the renal and mesenteric arteries. The portal vein is patent. There are two renal arteries bilaterally. The kidneys are without evidence of hydronephrosis or mass. Pelvis: There is no evidence of significant adenopathy. There is no evidence of appendicitis. There is diverticulosis particularly in the sigmoid colon. There is a fairly large amount of stool in the rectum. Some mild mucosal thickening in the lower rectum is present and the possibility of stercoral colitis cannot be excluded. There is a Archuleta catheter in the bladder. Mild degenerative changes are present in the hips and there is ankylosis of the sacroiliac joints. There is severe facet arthropathy bilaterally at L5-S1 and there are degenerative disc changes throughout the lumbar spine. IMPRESSION: Anasarca, pleural effusions, ascites. Cirrhosis. Diverticulosis coli and fecal impaction in the rectum. Electronically signed by Enrico Mohan 02/14/2018 11:20 AM
[2018-02-14 14:29] LABS: HEMATOCRIT 27.4 % (42.0-52.0); HEMOGLOBIN 8.5 g/dL (14.0-18.0)
[2018-02-14] MEDS: DILAUDID IV PRN (14:54)
[2018-02-14] MEDS: ALDACTONE PO SCH (15:06)
[2018-02-14] MEDS: ENTRESTO 24 MG-26 MG TABLET PO SCH ×2 (15:07→21:45)
[2018-02-14] MEDS ORDERED: NS 250 ML ONE (17:18)
--- NOTE | 2018-02-14 21:03 | CONSULTATION ---
DATE OF CONSULTATION: 02/14/2018 REASON FOR CONSULTATION: Melena. HISTORY OF PRESENT ILLNESS: 72 -year-old gentleman who has multiple medical problems anasarca, history of heart failure and atrial fibrillation. Has been having some melenic stools. I was asked to evaluate him further, never had a GI bleed before. He had history of hepatitis as a teenager but no known liver disease. PAST MEDICAL HISTORY: Systolic failure, diabetes mellitus, hypothyroidism, hepatitis. PAST SURGICAL HISTORY: Negative except for liver biopsy. SOCIAL: Does not smoke, drink. FAMILY HISTORY: CAD, congestive heart failure. REVIEW OF SYSTEMS: Otherwise negative. HOME MEDICATION: Bumex 1 b.i.d., glimepiride 1 in the morning, Synthroid 50 mcg, lisinopril 5 mg, Aldactone 12.5, he also takes aspirin. ALLERGIES: None. PHYSICAL EXAMINATION: Elderly man looks rather pale sleepy. Blood pressure 100 /60, heart rate 80, respiration 18, O2 saturation 95% .HEENT: Conjunctiva pallor. Neck: Supple, trachea midline. Heart and lungs: Normal. Abdomen: Distended, bowel sounds present. Extremities: 2+ pitting edema. LABORATORY DATA: Today white count 15, hematocrit 27.5 which is the same in the last 4-5 days, PT is high at 18.1. Had his abdominal pelvic CT shows generalized anasarca. pleural effusion and diverticulosis and some stool in the rectum. He has evidence of cirrhosis on the CT. IMPRESSION AND PLAN: 1. Anemia. 2. Melena. 3. Coagulopathy with PT of 18.4. 4. Liver disease. 5. Ascites . His hematocrit stable. If he is stable enough tomorrow will set him up for EGD meanwhile continue the PPI. cc: Rasta Lassiter MD [facility]ENTER[facility]ri
[2018-02-14 22:19] LABS: HEMATOCRIT 30.9 % (42.0-52.0); HEMOGLOBIN 9.7 g/dL (14.0-18.0)
[2018-02-15 01:30] LABS: HEMATOCRIT 30.4 % (42.0-52.0); HEMOGLOBIN 9.3 g/dL (14.0-18.0)
[2018-02-15] MEDS: DILAUDID IV PRN ×5 (01:31→21:22)
[2018-02-15] MEDS: DUONEB (A & A) INH SCH ×6 (03:05→23:01)
[2018-02-15] MEDS: PROTONIX 80 MG in NS 80 ML IV SCH ×3 (03:23→23:45)
[2018-02-15] MEDS: OFIRMEV 1000 MG/ISOTONIC SOLN 1,000 MG/100 ML BOTTLE IV SCH (03:24)
[2018-02-15] MEDS: HUMULIN R SUBQ SCH ×4 (06:38→20:14)
[2018-02-15] MEDS: SYNTHROID PO SCH (06:41)
[2018-02-15] MEDS ORDERED: LEXISCAN ONE (08:16)
[2018-02-15] MEDS ORDERED: VITAMIN K 10 MG in NS 50 ML IV ONE (09:14)
[2018-02-15] MEDS ORDERED: OFIRMEV 1000 MG/ISOTONIC SOLN 1,000 MG/100 ML BOTTLE IV PRN (09:30)
[2018-02-15] MEDS: ENTRESTO 24 MG-26 MG TABLET PO SCH ×2 (09:31→20:14)
[2018-02-15] MEDS: ALDACTONE PO SCH (09:31)
[2018-02-15] MEDS ORDERED: DIPRIVAN 1% ONE (10:11)
[2018-02-15] MEDS ORDERED: 1/2 NS 500 ML IV SCH (11:30)
[2018-02-15 11:31] LABS: AGAP 15; BUN 23 mg/dL (8-22); CHLORIDE 100 mmol/L (98-107); COSMO 279; CREATININE 1.1 mg/dL (0.7-1.2); GLUCOSE 86 mg/dL (70-104); SODIUM 138 mmol/L (136-145); TCO2 23 mmol/L (25-35)
[2018-02-15 11:32] LABS: ESTIMATED GFR > 60
[2018-02-15 11:41] LABS: HEMATOCRIT 34.8 % (42.0-52.0); HEMOGLOBIN 10.7 g/dL (14.0-18.0); MCH 28.5 PG (27-31); MCHC 30.7 g/dL (33-37); MCV 92.6 FL (81-99); MPV 11.4 FL (7.4-10.4); RBC 3.76 XMIL (4.7-6.1); RDW 19.2 % (11.5-14.5); WBC 14.81 X1000 (4.8-10.8)
--- NOTE | 2018-02-15 13:07 | OPERATIVE NOTE ---
PROCEDURE DATE: 02/15/2018 ATTENDING PHYSICIAN: Dayday Jaquez MD PRIMARY CARE PHYSICIAN: López Osborne MD TITLE OF PROCEDURE: Esophagogastroduodenoscopy. PREOPERATIVE DIAGNOSES: 1. Gastrointestinal bleed. 2. Anemia. 3. Coagulopathy. 4. Cirrhosis. 5. Congestive heart failure. Ejection fraction of 20%-25%. 6. Positive Hemoccult. POSTOPERATIVE DIAGNOSES: 1. Severe esophagitis in mid and distal esophagus, LA grade 4. 2. Z-line at 50 cm. 3. Small hiatal hernia, 1-2 cm. 4. Evidence of bile in the stomach. 5. Evidence of gastritis in the gastric body and antrum. 6. Small superficial ulcer in the gastric antrum noted, measuring less than 5 mm. 7. Normal fundus, cardia, and incisura. 8. Evidence of normal duodenal bulb and second portion of the duodenum. ESTIMATED BLOOD LOSS: None. COMPLICATIONS: None. ANESTHESIA: Monitored anesthesia care per the Anesthesia Department. SPECIMEN: None. PROCEDURE: After informed consent from the patient, explained the risks, benefits, indications, and alternatives to the procedure, the patient was prepared for EGD. The risks of the procedure, including infection, bleeding, pain, trauma to the surrounding structures, perforation, and were explained to the patient, among others, and he acknowledged these and agreed to proceed. The patient was brought to the OR. He was turned in the left lateral position. A bite block was placed in the patient's mouth. After adequate monitored anesthesia care, the upper scope was introduced into the esophagus and advanced all the way to the second portion of the duodenum. The esophagus was normal in the proximal 1/3. The mid and distal esophagus showed evidence of erythema, friability, erosions, and ulcerations, diffuse, in the mid and distal esophagus suggesting reflux esophagitis, grade 4. The Z-line was at 50 cm. There was evidence of 1 to 2 cm sliding hiatal hernia. The stomach showed evidence of bile, which was suctioned out. The underlying gastric mucosa showed erythema and erosions suggesting gastritis. There was evidence of a small superficial ulcer in the gastric antrum just before the pylorus. Retroflexion revealed normal fundus, cardia, and incisura. The duodenal bulb and second portion of the duodenum appeared normal. The air was withdrawn. The patient tolerated the procedure well and continued to be monitored in the OR in stable condition. RECOMMENDATIONS: 1. The patient will be on Protonix twice daily for 3 months and then wean down to Protonix once daily for another 3 months. 2. The patient will be on Carafate 1 g every 6 hours for 6 weeks. 3. The patient will be started on Iron C b.i.d. for 3 months. We will start the patient on multivitamin daily for 3 months. 4. The patient will start on full liquid diet and advance as tolerated. 5. The patient to avoid any tea, coffee, soda, and spicy foods, and patient to follow gastroesophageal reflux life changes. 6. The patient has new-onset of liver cirrhosis. His hepatitis panel is negative. Will check chronic liver disease workup. The patient follow up in the clinic in 4 weeks after discharge. 7. The patient ideally should have repeat EGD in 3 months to document healing of the esophagus and to evaluate for any other pathology, but we will have to base it on his overall clinical status and underlying medical comorbid conditions including cardiac disease. He has a very low EF of 20%-25%. The above plan discussed with the patient and family, and all questions answered. Please call with any further questions. I also spoke with Dr. Orantes. Please call us with any questions. cc: MD Rock Aguillon MD Cesar Garcia-Rodriguez, MD Jeb S. Hornsby, MD MTDD
[2018-02-15] MEDS: CARAFATE LIQUID PO SCH ×2 (13:30→20:14)
--- NOTE | 2018-02-15 14:56 | PROGRESS NOTE ---
DATE: 02/15/2018 SUBJECTIVE: Patient is sleepy because he is back from procedure for endoscopy, I informed family this case daughter and about his clinical situation. No issues noted as per nursing staff overnight. OBJECTIVE: Vitals: Temperature 98.4 degrees, heart rate 103, respiratory rate 16, blood pressure 109/75, O2 saturation 100% 3 L nasal cannula. General: This is a 72-year-old male lying in bed in no acute distress. HEENT: Head is normocephalic, atraumatic. Neck: Supple. No JVD noted. No carotid bruits. No lymphadenopathy. No thyromegaly. Cardiovascular: S1, S2 heard. No murmurs, gallops, or rubs. Regular rate and rhythm. Respiratory: Crepitations and coarse breath sounds noted in both pulmonary bases. Patient is not using any accessory muscles or having work of breathing. Abdomen: Definitely more distended but nontender to palpation. No signs of peritoneal irritation. Bowel sounds present. No organomegaly. Extremity: 2+ pitting edema in both lower extremity as well as upper extremity and scrotal edema noted, anasarca noted. Neurological: Patient is sleepier but moves 4 extremities spontaneously, patient is very hard of hearing. LABORATORY DATA: White cell count 14.81, hemoglobin 10.7, hematocrit 34.8, platelets 349,000 with normal renal function 1.1. ASSESSMENT AND PLAN: 1. Gastrointestinal bleeding. Patient was transferred to the intensive care unit because of massive episode of melena. EGD performed by Dr. Cook showed severe esophagitis, small superficial ulcer in the gastric antrum with evidence of normal duodenal bulb and 2nd portion of the duodenum so at this point will continue with Protonix, Carafate, iron C and will start liquid diet as well. 2. New onset liver cirrhosis. This is a new diagnosis for this patient. Hepatitis panel has been ordered and is negative. GI has ordered many lab tests will follow those results at discharge. 3. Atrial fibrillation, heart rate is well controlled at this time, of course because of the bleeding that medication has been stopped even aspirin has been stopped now, will continue to follow. 4. Transaminitis secondary to liver cirrhosis aware. 5. Anemia of blood loss. Hemoglobin is stable. Considering his EGD results I do not think hopefully he is going to bleed, will continue to monitor this patient closely. 6. Diabetes mellitus type 2, continue with sliding scale insulin and Accu-Cheks before meals and also at bedtime. 7. Disposition. At this point patient is going to stay in intensive care unit and if he is doing fine tomorrow he can be moved to a regular floor. cc: Dayday Jaquez MD
--- NOTE | 2018-02-15 15:39 | Diag Imaging Result Document ---
PROCEDURE NAME: MYOCARDIAL PERF SCAN, STR/REST - 02/15/2018 INDICATIONS: CHF, dyspnea. PROCEDURES PERFORMED: 1. Lexiscan stress. 2. One-day stress rest myocardial perfusion imaging. PROCEDURE IN DETAIL: Mr. Stevens was brought to the nuclear laboratory and had a resting study with injection of 16.2 mCi of technetium-99m sestamibi with usual imaging protocol utilized. He subsequently was brought back and had a Lexiscan and at peak stress, was injected with 45.5 mCi of technetium-99m sestamibi with usual imaging protocol utilized. LEXISCAN STRESS RESULTS: 1. Baseline EKG shows sinus rhythm. There is evidence for a lateral infarct on this study. 2. Lexiscan stress did not demonstrate any clear evidence of ischemic related EKG changes or significant arrhythmias during the course of the study. Occasional PVCs were identified. PERFUSION IMAGING RESULTS: 1. No evidence of abnormal extracardiac uptake. 2. TID ratio is 1.01. 3. Perfusion imaging demonstrates a large size severe intensity fixed defect located at the apex involving the distal anterior wall and distal lateral wall. This defect is fixed with no evidence of significant reversibility. There is a 2nd small to moderate size defect located in the mid inferior and basal inferior segments. This is largely fixed with some mild ischemia in the more distal portions suggesting arelis-infarct ischemia. 4. There is a significant reduction in LV systolic function. Myometrics, EF is 11%. The ECT tool box EF was 30%. I believe it is more closely in the 15% range. There is a dilated left ventricle with an end-diastolic volume of 173 and an end-systolic volume of 154. There is global hypokinesis with more prominent akinesis of the apex. cc: MD Lara Jett PA
[2018-02-15] MEDS: 1/2 NS 500 ML IV SCH (18:25)
[2018-02-15] MEDS: ICAR-C PO SCH (20:14)
[2018-02-15 23:31] LABS: IRON SATURATION 10 %; TIBC 269 ug/dL; TOTAL IRON 26 ug/dL (53-167); UNBOUND IRON 243 ug/dL (112-346)
[2018-02-16] MEDS: CARAFATE LIQUID PO SCH ×4 (02:13→22:00)
[2018-02-16] MEDS: DILAUDID IV PRN ×6 (02:13→23:31)
[2018-02-16] MEDS: DUONEB (A & A) INH SCH ×6 (03:31→23:20)
[2018-02-16] MEDS: SYNTHROID PO SCH (06:03)
[2018-02-16] MEDS: HUMULIN R SUBQ SCH ×4 (06:08→22:00)
[2018-02-16 07:12] LABS: AGAP 12; BUN 18 mg/dL (8-22); CHLORIDE 99 mmol/L (98-107); COSMO 276; ESTIMATED GFR > 60; GLUCOSE 111 mg/dL (70-104); SODIUM 137 mmol/L (136-145); TCO2 26 mmol/L (25-35)
[2018-02-16] MEDS: ALDACTONE PO SCH (08:07)
[2018-02-16] MEDS: CENTRUM SILVER PO SCH (08:07)
[2018-02-16] MEDS: ICAR-C PO SCH ×2 (08:07→21:59)
[2018-02-16] MEDS: TOPROL XL PO SCH ×2 (08:07→21:59)
[2018-02-16] MEDS: ENTRESTO 24 MG-26 MG TABLET PO SCH ×2 (08:07→21:59)
[2018-02-16] MEDS: LASIX PO SCH (08:07)
[2018-02-16 09:09] LABS: BASO# 0.05 X1000 (0.0-0.2); BASO% 0.4 % (0.0-0.8); EOS# 0.22 X1000 (0.0-0.7); EOS% 1.7 % (0.0-10.0); HEMATOCRIT 33.4 % (42.0-52.0); IMM GRAN# 0.05 X1000 (0.0-0.04); IMM GRAN% 0.4 % (0.0-0.5); LYMPH# 1.33 X1000 (1.2-3.4); LYMPH% 10.1 % (20.5-51.1); MCH 27.8 PG (27-31); MCHC 29.9 g/dL (33-37); MCV 92.8 FL (81-99); MONO# 1.53 X1000 (0.11-0.59); MONO% 11.6 % (1.7-9.3); MPV 11.6 FL (7.4-10.4); NEUT# 10.03 X1000 (1.4-6.5); NEUT% 75.8 % (42.2-75.2); PLT 338 X1000 (130-400); RDW 19.1 % (11.5-14.5); WBC 13.21 X1000 (4.8-10.8)
[2018-02-16] MEDS: PROTONIX 80 MG in NS 80 ML IV SCH ×2 (10:31→22:07)
--- NOTE | 2018-02-16 10:42 | PROGRESS NOTE ---
DATE: 02/16/2018 SUBJECTIVE: Patient is more awake and alert. Although he reports feeling fine daughter thinks that he is somewhat choking on food. OBJECTIVE: Vital Signs: Temperature 97.8 degrees, heart rate 110, respiratory rate 16, blood pressure 105/63. O2 saturation 100% 2 L nasal cannula. General: This is a chronically ill- looking, 72-year-old male, lying in bed, in no acute distress. Cardiovascular: S1, S2 heard. No murmurs, gallops, or rubs. Regular rate and rhythm. Respiratory: Some crackles and coarse breath sounds noted in both pulmonary bases. Patient not using any accessory muscles or having work of breathing. Abdomen: Soft. Still a little bit distended, but nontender to palpation. No signs of peritoneal irritation. Bowel sounds present. No organomegaly. Extremity: 2+ pitting edema in both lower extremities and scrotal edema. Anasarca noted. Neurological: Patient is more awake, alert, moves 4 extremities spontaneously. Patient very hard of hearing. LABORATORY DATA: White cell count 13.31, hemoglobin 10, hematocrit 33.4, platelets 338,000 with normal BMP, normal renal function. ASSESSMENT AND PLAN: 1. Gastrointestinal bleeding. The patient actually had more maroon-colored stool instead of black stools yesterday. As we mentioned before, the EGD showed severe esophagitis with a small superficial ulcer in the gastric antrum, but no acute bleeding lesions. At this point, we will continue with Protonix IV, sucralfate, iron C and patient is tolerating diet as well. 2. New onset liver cirrhosis. Workup in progress. Gastroenterology is following. 3. Atrial fibrillation. Heart rate is well controlled. The patient is in sinus rhythm. We will continue to monitor. 4. Transaminitis secondary to liver cirrhosis, aware. 5. Anemia of blood loss. Hemoglobin is stable. We will continue to monitor. 6. Diabetes mellitus type 2. We will continue with sliding scale insulin and Accu-Chek before meals and also at bedtime. A1c is 5.6, very well-controlled diabetes. 7. Swallowing problems. According to the daughter apparently patient is having some problems with swallowing. Not really choking, but in order to have good evaluation we will order a barium swallow for tomorrow. 8. Acute kidney injury. Completely resolved. Lasix oral has been restarted. 9. Disposition. Patient is going to be transferred to a regular floor. We will continue to monitor this patient closely. cc: Dayday Jaquez MD MTDD
[2018-02-16] MEDS: 1/2 NS 500 ML IV SCH (18:30)
[2018-02-17] MEDS: DILAUDID IV PRN ×6 (02:55→22:34)
[2018-02-17] MEDS: CARAFATE LIQUID PO SCH ×4 (02:55→21:24)
[2018-02-17] MEDS: DUONEB (A & A) INH SCH ×6 (03:00→23:18)
[2018-02-17] MEDS: HUMULIN R SUBQ SCH ×4 (06:12→21:32)
[2018-02-17 07:37] LABS: HEMOGLOBIN 8.7 g/dL (14.0-18.0); MCH 28.2 PG (27-31); MCV 94.2 FL (81-99); MPV 10.9 FL (7.4-10.4); RBC 3.08 XMIL (4.7-6.1); WBC 13.8 X1000 (4.8-10.8)
[2018-02-17] MEDS ORDERED: PROTONIX IV SCH (07:51)
[2018-02-17 07:54] LABS: AGAP 11; ALB/GLOB RATIO 0.8; ALBUMIN 2.3 g/dL (3.5-5.0); ALKALINE PHOSPHATASE 63 U/L (32-122); BUN 18 mg/dL (8-22); CALCIUM 8.1 mg/dL (8.8-10.2); CHLORIDE 103 mmol/L (98-107); COSMO 284; CREATININE 0.8 mg/dL (0.7-1.2); ESTIMATED GFR > 60; GLUCOSE 152 mg/dL (70-104); GOT 9 U/L (10-34); GPT 7 U/L (10-44); POTASSIUM 4.2 mmol/L (3.5-5.1); SODIUM 140 mmol/L (136-145); TCO2 26 mmol/L (25-35); TOTAL BILIRUBIN 1.19 mg/dL (0.20-1.00); TOTAL PROTEIN 5.3 g/dL (6.3-8.3)
[2018-02-17] MEDS: PROTONIX 80 MG in NS 80 ML IV SCH ×2 (07:54→20:15)
[2018-02-17] MEDS ORDERED: SODIUM CHLORIDE 0.9% 10 ML ONE ×2 (08:23→14:47)
--- NOTE | 2018-02-17 10:23 | PROGRESS NOTE ---
DATE: 02/16/2018 SUBJECTIVE: Patient is having some symptoms of dysphagia. He also had some maroon stools. OBJECTIVE: Vital Signs: Temperature 97.8 degrees, heart rate 100, respiratory rate 16, blood pressure 105/63, O2 saturation 100% 2 L. HEENT: Conjunctival pallor. Neck: Supple. Trachea midline. Heart: Normal. Lungs: Normal. Abdomen: Slightly distended. Nontender. Extremities: 2+ edema. Neurological: Intact other than hard of hearing. LABORATORY DATA: Hemoglobin and hematocrit is 10 and 33. IMPRESSION: 1. Gastrointestinal bleed. He had an EGD which showed a superficial ulcer in the antrum. He is on GI prophylaxis. 2. New onset cirrhosis. Workup in progress. 3. Atrial fibrillation. 4. Anemia secondary to blood loss. 5. Dysphagia. We will get a swallowing study. 6. Acute tubular necrosis. 7. Continue the current regimen. We will look at swallow study in the morning. cc: Rasta Lassiter MD
[2018-02-17] MEDS: ENTRESTO 24 MG-26 MG TABLET PO SCH ×2 (10:48→21:24)
[2018-02-17] MEDS: CENTRUM SILVER PO SCH (10:48)
[2018-02-17] MEDS: SYNTHROID PO SCH (10:48)
[2018-02-17] MEDS: ICAR-C PO SCH ×2 (10:48→21:25)
[2018-02-17] MEDS: ATIVAN IV PRN (10:48)
[2018-02-17] MEDS: LASIX PO SCH (10:48)
--- NOTE | 2018-02-17 10:48 | Diag Imaging Result Doc PS360 ---
EXAM: BA SWALLOW W/VIDEO SPEECH THER 02/17/2018 HISTORY: swallow problems TECHNIQUE: Modified barium swallow, 117 images, 75 mGy, 20 seconds fluoroscopy time. COMMENT: The patient is able to swallow barium without significant aspiration. Following multiple swallows of liquid barium there is a trace amount of barium posteriorly in the upper trachea and in the larynx. This is immediately elicited a cough reflex. There is some patulousness of the hypopharynx during all swallows. There is also a slight delay in the initiation of swallowing. IMPRESSION: Decreased tone in the hypopharynx. Trace aspiration. Electronically signed by Enrico Mohan 02/17/2018 10:45 AM
[2018-02-17] MEDS: ALDACTONE PO SCH (10:49)
[2018-02-17] MEDS: TOPROL XL PO SCH (10:49)
[2018-02-17] MEDS ORDERED: LASIX IV ONE (11:26)
--- NOTE | 2018-02-17 12:21 | Diag Imaging Result Doc PS360 ---
EXAM: CHEST-1 VIEW 02/17/2018 HISTORY: pulmonary edema TECHNIQUE: AP portable at 1202 COMMENT: There is alveolar opacity in the retrocardiac region of the left lower lobe. There is pleural fluid on the right. Compared to 02/10/2018 the degree of interstitial pulmonary edema has improved. IMPRESSION: Improved pulmonary edema. Atelectasis versus pneumonia left lower lobe. Electronically signed by Enrico Mohan 02/17/2018 12:18 PM
--- NOTE | 2018-02-17 14:52 | PROGRESS NOTE ---
DATE: 02/17/2018 SUBJECTIVE: The patient today looks different than yesterday. He is more confused and lethargic. Apparently, he received 1 dose of 1 mg Ativan IV just 30 minutes before. Also, he has having a little bit of labored breathing. OBJECTIVE: Vital Signs: Temperature 97.8, heart rate 110, respiratory rate 17 , blood pressure 112/72, O2 saturation 100% 2 L nasal cannula. General Examination: This is a chronically ill- looking, 72-year-old male lying in bed, in no acute distress. Cardiovascular: S1 and S2 heard. No murmurs, gallops, or rubs. Regular rate and rhythm. Respiratory : Crackles and rhonchi in both pulmonary krishnamurthy, mostly noted in both bases. The patient is not using any accessory muscles or having work of breathing. Abdomen: Soft, a little bit distended. Nontender to palpation. No signs of peritoneal irritation. Bowel sounds present. No organomegaly. Extremities: There is both upper and lower extremity edema. The patient is in anasarca. Also marked scrotal edema as well. Neurological: The patient is definitely more sleepier. Moves 4 extremities spontaneously. He is not answering any my questions. He is very hard of hearing. LABORATORY DATA: White cell count 13.8, hemoglobin 8.7, hematocrit 29.0, platelets 357,000 with a normal BMP. ASSESSMENT AND PLAN: 1. Acute respiratory failure due to left lower lobe pneumonia. The patient started breathing faster the last 24 to 48 hours. He is requiring 2 to 3 L of oxygen by nasal cannula. The x- ray for today shows less pulmonary edema and left lower lobe pneumonia. Considering that he has elevated white cell count and is clinically breathing faster, I think what we are going to do is start broad-spectrum antibiotics, in this case Teflaro and Zosyn, and will continue to monitor this patient closely. 2. Gastrointestinal bleeding. There have not been more signs of bleeding. The EGD shows just esophagitis and gastritis with a superficial ulcer in the gastric antrum, so at this point will continue with intravenous Protonix and Carafate as well. 3. Acute systolic congestive heart failure. We know the patient has systolic heart failure with ejection fraction of 20%. He has been on Lasix since admission, 40 mg intravenously every 12 hours, but because the renal function started getting higher in 1 day, we stopped Lasix and we have restarted already to 40 mg p.o. daily. Considering that he looks more edematous and in anasarca, I prefer to start Lasix 40 mg intravenously every 12 hours and will monitor BMP daily. 4. Anemia of chronic disease. Hemoglobin is stable. Will continue to monitor CBC daily. 5. Diabetes mellitus type 2. Hemoglobin A1c has been 5.6. He is on sliding scale insulin and Accu-Chek before meals. 6. Swallowing problems, but the barium swallow test did not reveal any swallowing problems. 7. Acute kidney injury, completely resolved. 8. Toxic encephalopathy. Secondary to Ativan. Will decrease dosis to 0.5 mg IV q4hr PRN to anxiety. DISPOSITION: I think at this considering he is declining I think he needs to go to ICU. CODE STATUS: Full Code. cc: Dayday Jaquez MD MTDD
[2018-02-17] MEDS: ZOSYN 3.375 GM in NS 50 ML IV SCH ×2 (15:34→22:46)
--- NOTE | 2018-02-17 15:42 | PROGRESS NOTE ---
DATE: 02/17/2018 SUBJECTIVE: The patient is resting in bed with family at bedside. The patient has been confused. He has decreased p.o. intake. No vomiting blood or passing blood in the stools. OBJECTIVE: Vital Signs: Temperature 98.4, chloride 119, respiratory rate 22, blood pressure 72/47, saturating 86% on nasal cannula. Body weight of 255 pounds 3 ounces. BMI 32.8 kg. General: Moderately nourished, lying in bed, in no acute distress. HEENT: Pale conjunctiva, no icterus. Neck: Supple. Abdomen: Protuberant anasarca noted. Mild abdominal distention noted. No guarding. Extremities: Bilateral lower extremity edema noted. Neurologic: He was sleepy, was able to wake up on commands, but was not able to have any meaningful conversation. I spoke to the patient's family at bedside. LABORATORY DATA: Hemoglobin and hematocrit are 8.7, 29, white count 13.8, platelet count of 357. Sodium 140, potassium 4.2, chloride 103, bicarbonate 29, with a BUN of 18, creatinine 0.8, glucose of 132. Calcium is 8.1. Total bilirubin is 1.19, AST 9, ALT 7, alkaline phosphatase 63, total protein 5.3, albumin of 2.3. Alcohol antitrypsin level of 221 and ceruloplasmin level of 35.7. INR on 02/14/2018 was 1.39. ROBERT is negative. Antimitochondrial antibody is less than 0.1. Antismooth muscle antibody is negative. Hepatitis panel is nonreactive. IMPRESSION AND PLAN: 1. Gastrointestinal bleeding secondary to severe esophagitis and gastric ulcer. We will continue proton pump inhibitors twice daily. We will continue to watch hematocrit and transfuse as needed. 2. Acute respiratory failure secondary to left lower lobe pneumonia and congestive heart failure. Cardiomyopathy with ejection fraction of 20% to 25%. He is on oxygen support. He is getting IV diuretics. He is also on broad-spectrum antibiotics with Zosyn and Teflaro. 3. Anemia. Continue to watch for now, transfuse as needed. We will keep on iron and multivitamin. 4. Type 2 diabetes. He is on sliding scale insulin. 5. Dysphagia secondary to severe esophagitis. We will keep on conservative treatment. 6. New diagnosis of liver cirrhosis. Chronic liver disease workup was negative. It is likely secondary to fatty liver disease versus cardiac cirrhosis. 7. Volume overload and anasarca. We will continue on spironolactone 25 mg every day and Lasix 40 mg intravenously twice daily per the primary team. The above plans were discussed with the patient and family at bedside. I answered all questions. Please call if any further questions. cc: MD Rock Aguillon MD Jeb S. Hornsby, MD MTDD
[2018-02-17] MEDS: TEFLARO 600 MG in NS 250 ML IV SCH (17:08)
[2018-02-17] MEDS: 1/2 NS 500 ML IV SCH (18:09)
[2018-02-17] MEDS ORDERED: PROTONIX 80 MG in NS 80 ML IV ONE (18:11)
--- NOTE | 2018-02-17 18:40 | Diag Imaging Result Doc PS360 ---
EXAM: CHEST-1 VIEW 02/17/2018 HISTORY: Verify NG tube placement. TECHNIQUE: Upright portable chest and abdomen for NG tube placement COMMENT: There is an NG tube with its tip in the stomach. There appears to be some clearing of the opacity in the left lower lobe seen on the previous study at 1202. IMPRESSION: Improved atelectasis or pneumonia left lower lobe. NG tube in the stomach. Electronically signed by Enrico Mohan 02/17/2018 6:37 PM
[2018-02-17] MEDS ORDERED: NS 500 ML ONE (19:38)
[2018-02-17] MEDS: NEO-SYNEPHRINE 50 MG in NS 250 ML IV SCH (19:44)
[2018-02-17] MEDS: LASIX IV SCH (21:23)
[2018-02-18] MEDS: CARAFATE LIQUID PO SCH ×5 (01:50→19:24)
[2018-02-18] MEDS: DILAUDID IV PRN ×6 (02:22→23:46)
[2018-02-18] MEDS: DUONEB (A & A) INH SCH ×6 (03:58→22:59)
[2018-02-18 05:00] LABS: HEMATOCRIT 30.7 % (42.0-52.0); HEMOGLOBIN 9.7 g/dL (14.0-18.0); MCH 28.8 PG (27-31); MCHC 31.6 g/dL (33-37); MCV 91.1 FL (81-99); MPV 10.2 FL (7.4-10.4); RBC 3.37 XMIL (4.7-6.1); RDW 18.3 % (11.5-14.5); WBC 17.74 X1000 (4.8-10.8)
[2018-02-18] MEDS: 1/2 NS 500 ML IV SCH (05:00)
[2018-02-18] MEDS: TEFLARO 600 MG in NS 250 ML IV SCH ×2 (05:00→17:12)
[2018-02-18 05:29] LABS: AGAP 10; ALB/GLOB RATIO 0.7; ALBUMIN 2.3 g/dL (3.5-5.0); ALKALINE PHOSPHATASE 66 U/L (32-122); BUN 26 mg/dL (8-22); CALCIUM 7.9 mg/dL (8.8-10.2); CHLORIDE 103 mmol/L (98-107); COSMO 291; ESTIMATED GFR > 60; GLUCOSE 152 mg/dL (70-104); GOT 14 U/L (10-34); GPT 8 U/L (10-44); POTASSIUM 3.7 mmol/L (3.5-5.1); SODIUM 142 mmol/L (136-145); TCO2 29 mmol/L (25-35); TOTAL PROTEIN 5.4 g/dL (6.3-8.3)
[2018-02-18] MEDS: ZOSYN 3.375 GM in NS 50 ML IV SCH ×4 (05:39→22:29)
[2018-02-18] MEDS: HUMULIN R SUBQ SCH ×4 (06:47→20:49)
[2018-02-18] MEDS: SYNTHROID PO SCH (07:20)
[2018-02-18] MEDS: PROTONIX 80 MG in NS 80 ML IV SCH ×2 (07:48→17:21)
[2018-02-18] MEDS: LASIX IV SCH ×2 (08:26→21:03)
[2018-02-18 08:30] LABS: HEMATOCRIT 31.7 % (42.0-52.0)
[2018-02-18] MEDS: CENTRUM SILVER PO SCH (08:59)
[2018-02-18] MEDS: ATIVAN IV PRN ×4 (08:59→21:03)
[2018-02-18] MEDS: ALDACTONE PO SCH (08:59)
[2018-02-18] MEDS: ICAR-C PO SCH ×2 (09:00→21:03)
[2018-02-18] MEDS ORDERED: VITAMIN K 10 MG in NS 50 ML IV ONE (09:00)
[2018-02-18] MEDS: DULCOLAX PR SCH ×2 (09:07→21:03)
--- NOTE | 2018-02-18 10:05 | PROGRESS NOTE ---
DATE: 02/18/2018 SUBJECTIVE: The patient was transferred last night for nausea, vomiting, and coffee-grounds emesis. He had NG tube placed. According to the records, his NG tube output was around 1800 mL, which is coffee grounds. He received 2 units of blood transfusion. His hematocrit, after transfusion, had been stable. The patient had a recent EGD done on 02/15/2018, which showed severe esophagitis, grade 4, in the mid and distal esophagus and hiatal hernia and a superficial ulcer in the gastric antrum. He is currently feeling better. His NG tube this morning, he put out about 100 mL. It is bilious in color. OBJECTIVE: Vital signs: Temperature of 97.8, pulse 109, respiratory rate 12, blood pressure of 97/65, saturating 95% on 4 liters nasal cannula. General Appearance: Moderately-built, lying in bed, in no acute distress. HEENT: Positive NG tube. Neck: Supple. Abdomen,: Protuberant soft, nondistended. No guarding or rebound. Extremities: No cyanosis or clubbing. Bilateral lower extremity edema noted. Neuro tcuker: Alert and answers simple questions. LABS: Hemoglobin and hematocrit is 10 and 31.7, white count of 17.74, platelet count of 380,000 sodium 142, potassium 3.7, chloride 103, bicarb 29, anion gap 10, BUN of 23, creatinine 1, glucose of 132, calcium 7.9. Total bilirubin is 1.62, AST 14, ALT 8, alkaline phosphatase 66, total protein 5.4, albumin of 2.3. His chronic liver disease workup has been negative. So on chest x- ray done yesterday showed improved atelectasis or pneumonia in the left lower lobe. NG tube in the stomach. IMPRESSION AND PLAN: 1. Gastrointestinal bleeding. In this regard, we will continue on Protonix drip for 72 hours. We will keep her on Carafate 1 gram 6 hours. We will start on clear liquid diet. We will remove the nasogastric tube. He continues to have a low aspiration amounts. We will continue to watch hematocrit and transfuse as needed. 2. Cardiomyopathy. Ejection fraction of 20% to 25%. We will continue to follow Cardiology recommendations. 3. Anemia. Continue to watch for now, and transfuse as needed. He will continue iron and multivitamin. 4. Dysphagia secondary to severe esophagitis. Will continue proton-pump inhibitors for now. 5. Newly diagnosed liver cirrhosis. Chronic liver disease workup has been negative. It is likely secondary to fatty liver disease versus cardiac cirrhosis. 6. Anasarca. He is on Lasix and Aldactone. 7. Mild coagulopathy on admission. We will give a dose of vitamin K. 8. We will start him on bowel regimen with Dulcolax b.i.d. The above plans was discussed with the patient and the nursing staff, and all questions please. Please call us with any further questions. cc: MD López Aguillon MD
--- NOTE | 2018-02-18 12:01 | Diag Imaging Result Doc PS360 ---
EXAM: KUB ABDOMEN 02/18/2018 HISTORY: evaluate for constipation or obstruction TECHNIQUE: KUB COMMENT: There is contrast in the stomach and ascending colon and some small bowel loops. There is some gas in the colon. There is no evidence of small bowel dilatation organomegaly or mass. IMPRESSION: Mild constipation. Electronically signed by Enrico Mohan 02/18/2018 11:59 AM
[2018-02-18] MEDS: NEO-SYNEPHRINE 50 MG in NS 250 ML IV SCH (12:22)
[2018-02-18 14:21] LABS: HEMATOCRIT 31.9 % (42.0-52.0); HEMOGLOBIN 9.8 g/dL (14.0-18.0)
[2018-02-18] MEDS ORDERED: VANCOMYCIN IV PER PHARMACY MISC SCH (15:15)
--- NOTE | 2018-02-18 15:44 | PROGRESS NOTE ---
DATE: 02/18/2018 INTERVAL HISTORY: The patient remains on pressors with Cristino. However, blood pressure is somewhat improved and it may be able to be weaned off. Remains confused, but less lethargic and more cooperative than previous. No further signs or symptoms of active bleeding. No other acute events overnight. No new complaints. REVIEW OF SYSTEMS: Twelve-point review of systems negative except as per interval history. LABORATORY DATA: WBC 17.7, hemoglobin 9.8, hematocrit 31.9, platelets 380,000. Sodium 142, potassium 3.7, bicarb 29, BUN 26, creatinine 1.0, glucose 168. Total bilirubin 1.6, AST 14, ALT 8, alkaline phosphatase 66, total protein 5.4, albumin 2.3. IMAGING: Abdominal x-ray: Mild constipation, otherwise unremarkable. OBJECTIVE: Vital Signs: T-max 99.9 degrees, pulse 99, respirations 12, blood pressure 124/68, O2 saturation 100% on 5 L by nasal cannula. General: No acute distress. Vitals as above. HEENT: Normocephalic, atraumatic. Moist mucous membranes. Neck: No cervical adenopathy. Cardiovascular: Regular rate and rhythm. No murmurs, rubs, or gallops. Pulmonary: Scattered rhonchi and bibasilar crackles. No accessory muscle use or increased work of breathing. Abdomen: Soft, nontender, nondistended. Bowel sounds positive. Extremities: Peripheral pulses intact. No clubbing or cyanosis. 3+ lower extremity edema noted bilaterally. Neurologic: Cranial nerves 2-12 grossly intact. Globally weak, but no focal deficits identified. Patient quite hard of hearing, which is baseline. Psychiatric: Normal mood and affect. Oriented to person and place, but not time. Skin: No rashes or lesions. ASSESSMENT AND PLAN: 1. Acute respiratory failure secondary to pneumonia and acute on chronic systolic congestive heart failure. Patient still with significant lower extremity edema, but pulmonary edema component appears to be significantly improved. Still with ongoing pneumonia , which is improving slowly. Continues to have fairly high oxygen requirements, which are only slightly improved. Continue antibiotics with Zosyn and adding vancomycin in light of ongoing respiratory failure. Continue intravenous Lasix for now, but may be able to wean down in the near future. 2. Gastrointestinal bleed. Esophagogastroduodenoscopy with esophagitis, gastritis, and superficial ulcer. Hemoglobin and hematocrit relatively stable at this point. Continue Protonix. Gastroenterology following. Acute post hemorrhagic anemia on top of anemia of chronic disease. No further signs or symptoms of active bleeding. Continue to monitor blood counts. 3. Diabetes mellitus. Reasonable glucose control on current regimen. Continue monitoring. 4. Acute kidney injury, essentially resolved at this point. Continue to monitor. 5. Metabolic encephalopathy, likely combination of hepatic encephalopathy related to cirrhosis and acute illness. 6. Septic shock related to pneumonia, as above. Remains on Cristino, but blood pressure overall improved and suspect will be able to wean off of pressors today. 7. Deep vein thrombosis prophylaxis. Sequential compression devices given recent gastrointestinal bleed. 40 minutes critical care time spent immediately available to the patient, examining patient, reviewing labs, discussing care with nursing staff, and making medical decisions. VALERY
[2018-02-18] MEDS ORDERED: VANCOMYCIN 2,400 MG in NS 500 ML IV ONE (18:00)
[2018-02-18 20:25] LABS: HEMATOCRIT 32.9 % (42.0-52.0); HEMOGLOBIN 10.4 g/dL (14.0-18.0)
[2018-02-19] MEDS: DUONEB (A & A) INH SCH ×6 (03:45→23:11)
[2018-02-19] MEDS: CARAFATE LIQUID PO SCH ×4 (04:20→21:41)
[2018-02-19] MEDS: DILAUDID IV PRN (04:21)
[2018-02-19] MEDS: ZOSYN 3.375 GM in NS 50 ML IV SCH ×4 (04:21→21:46)
[2018-02-19] MEDS: ATIVAN IV PRN (04:22)
[2018-02-19] MEDS: TEFLARO 600 MG in NS 250 ML IV SCH (05:26)
[2018-02-19] MEDS: NEO-SYNEPHRINE 50 MG in NS 250 ML IV SCH (05:26)
[2018-02-19] MEDS: 1/2 NS 500 ML IV SCH (05:28)
[2018-02-19 05:55] LABS: INR 1.25; PROTIME 16.7 Seconds (11.0-16.0)
[2018-02-19 06:11] LABS: HEMATOCRIT 32.2 % (42.0-52.0); MCH 28.7 PG (27-31); MCHC 31.1 g/dL (33-37); MCV 92.3 FL (81-99); MPV 10.3 FL (7.4-10.4); RBC 3.49 XMIL (4.7-6.1); RDW 19.1 % (11.5-14.5); WBC 21.84 X1000 (4.8-10.8)
[2018-02-19] MEDS: SYNTHROID PO SCH (06:13)
[2018-02-19 06:26] LABS: AGAP 13; ALB/GLOB RATIO 0.7; ALBUMIN 2.4 g/dL (3.5-5.0); ALKALINE PHOSPHATASE 73 U/L (32-122); BUN 17 mg/dL (8-22); CALCIUM 7.6 mg/dL (8.8-10.2); CHLORIDE 103 mmol/L (98-107); COSMO 294; CREATININE 0.8 mg/dL (0.7-1.2); ESTIMATED GFR > 60; GLUCOSE 128 mg/dL (70-104); GOT 12 U/L (10-34); GPT 8 U/L (10-44); POTASSIUM 3.3 mmol/L (3.5-5.1); SODIUM 146 mmol/L (136-145); TCO2 30 mmol/L (25-35); TOTAL BILIRUBIN 1.68 mg/dL (0.20-1.00); TOTAL PROTEIN 5.7 g/dL (6.3-8.3)
[2018-02-19] MEDS: HUMULIN R SUBQ SCH ×4 (06:38→21:17)
[2018-02-19] MEDS: PROTONIX 80 MG in NS 80 ML IV SCH ×2 (07:29→14:55)
[2018-02-19] MEDS: POTASSIUM CHLORIDE 20 MEQ/SWI 20 MEQ/100 ML IVPB IV SCH ×2 (08:58→10:43)
[2018-02-19] MEDS: LASIX IV SCH ×2 (08:58→21:41)
[2018-02-19] MEDS ORDERED: NS 250 ML ONE (09:08)
[2018-02-19] MEDS: DULCOLAX PR SCH ×2 (09:09→21:17)
[2018-02-19] MEDS: CENTRUM SILVER PO SCH (10:17)
[2018-02-19] MEDS: ICAR-C PO SCH ×2 (10:18→21:41)
--- NOTE | 2018-02-19 10:33 | Diag Imaging Result Doc PS360 ---
EXAM: CHEST-PORTABLE HISTORY: PICC line placement TECHNIQUE: Chest single view COMPARISON: 02/17/2018 FINDINGS: There is a small left pleural effusion with basilar atelectasis and/or infiltrates similar to the prior exam. There is mild pulmonary edema which is slightly more prominent. A right-sided PICC line has been placed. The tip overlies the distal superior vena cava. IMPRESSION: PICC line in good position. Electronically signed by Armando Townsend 02/19/2018 10:31 AM
[2018-02-19] MEDS: MORPHINE IV PRN ×4 (10:47→22:47)
[2018-02-19] MEDS: LOVENOX SUBQ SCH (14:55)
--- NOTE | 2018-02-19 15:19 | PROGRESS NOTE ---
DATE: 02/19/2018 INTERVAL HISTORY: The patient is still requiring pressors with Cristino-Synephrine. Less responsive this morning but recently received pain medication. Still no signs or symptoms of active bleeding. No other acute events overnight. Discussed with nursing. Patient does appear to have increased right upper extremity edema beyond previous. REVIEW OF SYSTEMS: Unable to obtain secondary to patient's mental status. LABORATORY DATA: WBC 21.8, hemoglobin 10, hematocrit 32.2, platelets 352,000. INR 1.25. Sodium 146, potassium 3.3. BUN 17, creatinine 0.8, glucose 128, total bilirubin 1.68, AST 12, ALT 8, total protein 5.7, albumin 2.4. IMAGING: Chest x-ray: Small left pleural effusion with basilar atelectasis versus infiltrate similar to prior. Mild pulmonary edema which is slightly more prominent. Right -sided PICC line in good position. Right upper extremity ultrasound with extensive DVT noted on preliminary report. Final report pending. VITAL SIGNS: T-max 99.9, pulse 95, respirations 15, blood pressure 81/54, O2 saturation 100 percent on 3 L by nasal cannula. PHYSICAL EXAMINATION: General: No acute distress. Vital Signs as above. HEENT : Normocephalic, atraumatic. Moist mucous membranes. No cervical adenopathy. Cardiovascular: Irregular rhythm, normal rate. No murmurs, rubs, or gallops noted. Pulmonary: Scattered rhonchi. Bibasilar crackles essentially unchanged. No accessory muscle use or increased work of breathing. Abdomen is soft, nontender, nondistended. Bowel sounds positive. Extremities: Peripheral pulses intact. No clubbing or cyanosis. 3+ lower extremity edema noted bilaterally and unchanged. Increased right upper extremity edema. Neurologic: Limited by patient's mental status. Pupils are equal, round, and reactive to light. No facial asymmetry. Occasional spontaneous movement of head and extremities. No clear focal deficits. Psychiatric: Patient is somnolent but does arouse briefly to stimulation. Not really following commands at this time. Skin: Patient has multiple small ulcers of the feet and anterior legs which are largely unchanged. No new rashes or lesions noted. ASSESSMENT AND PLAN: 1. Acute hypoxic respiratory failure secondary to pneumonia and acute-on- chronic systolic congestive heart failure: The patient still with significant lower extremity edema. Oxygen requirements somewhat improved but still with edema noted on chest x-ray. We do appear to be getting good diuresis based on ins and outs. Will continue current dose of Lasix. Continue antibiotics with vancomycin and Zosyn. If the patient fails to progress further, then we will consider pulmonary consult tomorrow. 2. Right upper extremity deep venous thrombosis. Patient with significant bilateral lower extremity swelling as well as right upper extremity swelling which was worsened. Ultrasound obtained which preliminary report shows extensive DVT. The patient is high risk for bleeding given recent GI bleed but blood counts have been stable for several days. We will start the patient on full-dose Lovenox and monitor closely. We will also ultrasound legs to assess for further DVT despite initially favoring heart failure as a cause of his lower extremity edema. 3. Gastrointestinal bleed. EGD showing esophagitis, gastritis, superficial ulcer. Blood counts have been stable for several days. Continue Protonix. Gastrointestinal following. Monitor closely as we start anticoagulation. 4. Diabetes mellitus, reasonable control on current regimen. Continue monitoring. 5. Septic shock. However, likely related to pneumonia and congestive heart failure as above. Remains on phenylephrine with adequate blood pressures but have not been able to wean off so far. Treatment of underlying conditions as above. Monitor closely. 7. Acute kidney injury, essentially resolved. At this point, continue to monitor kidney function. 8. Metabolic encephalopathy, multifactorial with underlying cirrhosis, acute illness as above. Also, adjusting pain medications to attempt to get adequate pain relief without sedation. 9. Deep vein thrombosis prophylaxis; Lovenox. Approximately 45 minutes of critical care time spent examining patient and reviewing labs and assessing care with nursing staff and making medical decisions. MTDHenri
[2018-02-19] MEDS: VANCOMYCIN 2 GM in NS 500 ML IV SCH (18:08)
[2018-02-20] MEDS: NEO-SYNEPHRINE 50 MG in NS 250 ML IV SCH ×2 (01:07→18:43)
--- NOTE | 2018-02-20 01:44 | Extremity Venous Study ---
PROCEDURE NAME: Venous U/S Right Arm - 02/19/2018 REFERRING PHYSICIAN: Dani Menezes MD. READING PHYSICIAN: Vicente Sanchez MD. GRINDING SUPERVISOR: Hyacinth. INDICATION: Right arm pain and swelling. FINDINGS: The right internal jugular subclavian, axillary, brachial, cephalic and median cubital veins were imaged. There is acute thrombosis and noncompressibility and no flow of the right axillary vein, as well as the right cephalic and median cubital veins. INTERPRETATION: Acute DVT of the right axillary vein and SVT of the right cephalic and median cubital veins. cc: Vicente Sanchez MD
[2018-02-20] MEDS: PROTONIX 80 MG in NS 80 ML IV SCH ×2 (02:03→12:22)
[2018-02-20] MEDS: CARAFATE LIQUID PO SCH ×3 (02:03→14:42)
[2018-02-20] MEDS: LOVENOX SUBQ SCH ×2 (02:04→14:42)
[2018-02-20] MEDS: MORPHINE IV PRN ×4 (02:07→20:03)
[2018-02-20] MEDS: DUONEB (A & A) INH SCH ×5 (03:11→20:29)
[2018-02-20] MEDS: ZOSYN 3.375 GM in NS 50 ML IV SCH ×4 (05:22→22:21)
[2018-02-20] MEDS: 1/2 NS 500 ML IV SCH (05:23)
[2018-02-20 06:23] LABS: BASO# 0.03 X1000 (0.0-0.2); BASO% 0.2 % (0.0-0.8); EOS% 0.6 % (0.0-10.0); HEMATOCRIT 29.4 % (42.0-52.0); HEMOGLOBIN 8.9 g/dL (14.0-18.0); IMM GRAN% 0.6 % (0.0-0.5); LYMPH# 1.56 X1000 (1.2-3.4); LYMPH% 8.8 % (20.5-51.1); MCH 27.7 PG (27-31); MCHC 30.3 g/dL (33-37); MCV 91.6 FL (81-99); MONO# 1.56 X1000 (0.11-0.59); MONO% 8.8 % (1.7-9.3); MPV 10.6 FL (7.4-10.4); NEUT# 14.29 X1000 (1.4-6.5); PLT 322 X1000 (130-400); RBC 3.21 XMIL (4.7-6.1); RDW 18.8 % (11.5-14.5); WBC 17.64 X1000 (4.8-10.8)
[2018-02-20] MEDS: HUMULIN R SUBQ SCH ×3 (06:42→16:31)
[2018-02-20] MEDS: SYNTHROID PO SCH (06:42)
[2018-02-20 06:50] LABS: AGAP 13; BUN 16 mg/dL (8-22); CALCIUM 7.6 mg/dL (8.8-10.2); CHLORIDE 105 mmol/L (98-107); COSMO 297; CREATININE 0.8 mg/dL (0.7-1.2); ESTIMATED GFR > 60; GLUCOSE 118 mg/dL (70-104); SODIUM 148 mmol/L (136-145); TCO2 30 mmol/L (25-35)
[2018-02-20 07:23] LABS: BASO 2 % (0-1); LYMPHS 8 % (21-51); MONO 10 % (1-9); SEGS 80 % (42-75)
--- NOTE | 2018-02-20 08:37 | Diag Imaging Result Doc PS360 ---
CHEST-PORTABLE - 02/20/2018 INDICATION: dyspnea COMPARISON: 02/19/2018 FINDINGS: Stable right PICC line in good position. Stable central infiltrates bilaterally compatible with pulmonary edema. Stable small bibasilar pleural effusions. Stable cardiomegaly and pulmonary vascular congestion. IMPRESSION: Cardiomegaly, pulmonary edema, trace pleural effusions. Electronically signed by Timi Haskins 02/20/2018 8:35 AM
[2018-02-20] MEDS ORDERED: MORPHINE IV PRN (08:45)
[2018-02-20] MEDS ORDERED: LASIX IV SCH (09:00)
[2018-02-20] MEDS: POTASSIUM CHLORIDE 40 MEQ/SWI 40 MEQ/100 ML IVPB IV SCH ×2 (09:01→16:31)
[2018-02-20] MEDS: ICAR-C PO SCH ×2 (09:02→20:44)
[2018-02-20] MEDS: DULCOLAX PR SCH ×2 (09:02→20:44)
[2018-02-20] MEDS: CENTRUM SILVER PO SCH (09:02)
[2018-02-20 13:40] LABS: HEMOGLOBIN 9.2 g/dL (14.0-18.0)
--- NOTE | 2018-02-20 15:51 | PROGRESS NOTE ---
DATE: 02/20/2018 INTERVAL HISTORY: The patient is still requiring pressors with Cristino-Synephrine. More awake, alert, and cooperative after pain medication adjustment yesterday. Slight decrease in blood counts, but still no signs or symptoms of active bleeding. Complains of some pain associated with swelling of his extremities, but no other new complaints. No other acute events overnight. REVIEW OF SYSTEMS: A 12 point review of systems negative, except as per interval history. LABS: White count 17.6, hemoglobin 9.2, hematocrit 30, platelets 322. Sodium 148, potassium 3, BUN 16, creatinine 0.8, glucose 142. X-RAYS: Chest x-ray largely unchanged with cardiomegaly, minimal pulmonary edema and trace pleural effusions. VITALS: T-max 99.2 degrees, pulse 100, respirations 14, blood pressure 114/72, O2 saturation 100% on 2 L by nasal cannula. PHYSICAL EXAM: General: No acute distress. Vitals as above. HEENT: Normocephalic, atraumatic. Moist mucous membranes. No cervical adenopathy. Cardiovascular: Occasional runs of normal sinus, but largely irregularly irregular with borderline tachycardic rate. No murmurs, rubs, or gallops noted. Pulmonary: Scattered rhonchi remain. Bibasilar crackles still present. No accessory muscle use or increased work of breathing. Abdomen: Soft, nontender , nondistended. Bowel sounds positive. Extremities: Peripheral pulses intact. No clubbing or cyanosis. Marked lower extremity pitting edema in both legs and right arm. Neurologic: Cranial nerves 2-12 grossly intact. Globally weak, but no focal deficits. Psychiatric: Normal mood and affect. Awake, alert, oriented to person and place, but not time. Following commands and conversant. Skin: Multiple small ulcers unchanged. No new rashes or lesions identified. ASSESSMENT AND PLAN: 1. Acute hypoxic respiratory failure secondary to pneumonia and acute on chronic congestive heart failure. The patient still with significant lower extremity edema, but oxygen requirements pretty minimal at this point. Chest x-ray with only very mild pulmonary edema. Given developing hypernatremia, hypokalemia and ongoing hypotension in the setting of improved edema, we will discontinue Lasix at this time and monitor. Continue antibiotics for pneumonia. Leukocytosis somewhat improved with the addition of vancomycin a couple days ago. Continue to monitor closely. 2. Septic shock, likely related to pneumonia and congestive heart failure as above. Remains on phenylephrine with adequate blood pressures, but have not been successful in weaning so far. Holding Lasix as above and monitor closely. 3. Right upper extremity deep vein thrombosis. Patient with significant bilateral lower extremity swelling and right upper extremity swelling. Ultrasound of the right upper extremity showing extensive clots. Ultrasound of the lower extremities pending. High risk for bleeding given recent gastrointestinal bleed, but placed on full-dose Lovenox. Slight decrease in hemoglobin and hematocrit today, but no signs or symptoms of active bleeding. Patient has had several small bowel movements with no melena or gross blood. No hemoptysis, hematemesis. Monitor blood counts closely and await results of lower extremity Dopplers. 4. Gastrointestinal bleed. Esophagogastroduodenoscopy showed esophagitis, gastritis, superficial ulcer. Blood counts slightly down today. Monitor closely in the setting of anticoagulation and continue Protonix. 5. Diabetes mellitus. Reasonable control on current regimen. Continue sliding scale insulin. 6. Acute kidney injury, essentially resolved. Monitor labs. 7. Metabolic encephalopathy, multifactorial with underlying cirrhosis, acute illness, pain and anxiety medication. Does appear somewhat improved today. Continue monitoring. 8. Pain management. Patient with chronic pain, but also pain associated with limb swelling. Improved, but not completely relieved by lower dose of morphine started yesterday. Will increase dose slightly to try to obtain better pain control without sedating him. 9. Deep vein thrombosis prophylaxis. Lovenox. CRITICAL CARE TIME: Approximately 35 minutes of critical care time spent examining the patient, reviewing labs, discussing events with nursing staff, and making medical decisions. [facility] CENTERHenri
[2018-02-20] MEDS: PROTONIX IV SCH ×2 (16:31→17:49)
[2018-02-20] MEDS ORDERED: DOBUTAMINE 250 MG/D5W 250 MG/250 ML IV.SOLN IV SCH (17:00)
[2018-02-20] MEDS ORDERED: DOBUTAMINE 500/D5W 500 MG/250 ML IV.SOLN IV SCH (17:30)
[2018-02-20] MEDS: LANOXIN PO SCH (17:38)
[2018-02-20] MEDS: LASIX IV SCH (17:38)
[2018-02-20] MEDS: VANCOMYCIN 2 GM in NS 500 ML IV SCH (19:23)
[2018-02-21] MEDS: CARAFATE LIQUID PO SCH ×5 (01:48→21:00)
[2018-02-21] MEDS: HUMULIN R SUBQ SCH ×5 (01:48→21:00)
[2018-02-21] MEDS: MORPHINE IV PRN ×6 (03:28→20:58)
[2018-02-21] MEDS: LOVENOX SUBQ SCH (03:28)
[2018-02-21] MEDS: ZOSYN 3.375 GM in NS 50 ML IV SCH ×3 (05:14→16:59)
[2018-02-21] MEDS: 1/2 NS 500 ML IV SCH (05:14)
[2018-02-21] MEDS: PROTONIX IV SCH ×2 (05:14→18:15)
[2018-02-21] MEDS: NEO-SYNEPHRINE 50 MG in NS 250 ML IV SCH (05:22)
[2018-02-21 05:37] LABS: BASO# 0.06 X1000 (0.0-0.2); BASO% 0.4 % (0.0-0.8); EOS# 0.13 X1000 (0.0-0.7); EOS% 0.8 % (0.0-10.0); HEMATOCRIT 28.5 % (42.0-52.0); HEMOGLOBIN 8.5 g/dL (14.0-18.0); IMM GRAN# 0.11 X1000 (0.0-0.04); IMM GRAN% 0.7 % (0.0-0.5); LYMPH# 1.48 X1000 (1.2-3.4); LYMPH% 9.4 % (20.5-51.1); MCHC 29.8 g/dL (33-37); MCV 93.8 FL (81-99); MONO# 1.22 X1000 (0.11-0.59); MONO% 7.7 % (1.7-9.3); MPV 10.3 FL (7.4-10.4); NEUT# 12.76 X1000 (1.4-6.5); PLT 277 X1000 (130-400); RBC 3.04 XMIL (4.7-6.1); RDW 18.9 % (11.5-14.5); WBC 15.76 X1000 (4.8-10.8)
[2018-02-21] MEDS: DUONEB (A & A) INH SCH ×7 (05:39→23:35)
[2018-02-21 06:19] LABS: AGAP 12; BUN 15 mg/dL (8-22); CALCIUM 7.6 mg/dL (8.8-10.2); CHLORIDE 104 mmol/L (98-107); COSMO 294; CREATININE 0.8 mg/dL (0.7-1.2); ESTIMATED GFR > 60; GLUCOSE 148 mg/dL (70-104); POTASSIUM 3.2 mmol/L (3.5-5.1); SODIUM 146 mmol/L (136-145); TCO2 30 mmol/L (25-35)
[2018-02-21] MEDS: SYNTHROID PO SCH (06:24)
[2018-02-21] MEDS: ATIVAN IV PRN (07:46)
[2018-02-21] MEDS ORDERED: POTASSIUM CHLORIDE 60 MEQ in NS 500 ML IV ONE (08:06)
[2018-02-21] MEDS: ICAR-C PO SCH ×2 (09:37→21:00)
[2018-02-21] MEDS: CENTRUM SILVER PO SCH (09:38)
[2018-02-21] MEDS: LASIX IV SCH ×2 (09:38→20:58)
[2018-02-21] MEDS: COZAAR PO SCH (09:39)
[2018-02-21] MEDS: DULCOLAX PR SCH ×2 (09:40→21:00)
[2018-02-21] MEDS: LANOXIN PO SCH (09:40)
[2018-02-21 10:15] LABS: HEMATOCRIT 28.5 % (42.0-52.0); HEMOGLOBIN 8.7 g/dL (14.0-18.0)
--- NOTE | 2018-02-21 12:57 | PROGRESS NOTE ---
DATE: 02/21/2018 SUBJECTIVE: This is Dr. Cook's patient. I was called in to see the patient. The patient apparently had dark stool. The chart was reviewed which indicates that the patient has had EGD recently for anemia and melena and was found to have was grade 4 esophagitis and also had gastritis. He has been on PPI, but for his anemia he is also receiving Icar C. Endoscopy was done by Dr. Cook on 15 of February which showed evidence of severe esophagitis LA grade 4, gastritis and a small superficial gastric ulcer in the antrum. No signs of active bleeding was noted. He was started on proton pump inhibitor which he is already on and Carafate. He has been on iron supplement as well. He has had dark stool and I was called to evaluate the patient. The patient is in the ICU and his daughter was present at the bedside. She confirmed the presence of dark stool. However, he has not had any bright red blood per rectum. He has been tolerating his diet. He denied any other symptoms of abdominal pain, nausea or vomiting. OBJECTIVE: On examination, abdomen is full, soft, nontender. Bowel sounds audible. LABORATORIES: Reviewed show hemoglobin is 8.7, hematocrit 28.5. His BUN was 15 with creatinine of 0.8. IMPRESSION: Melena and anemia. History of severe esophagitis, gastritis and gastric ulcer. I do not think he is actively bleeding now. His hemoglobin and hematocrit are fairly stable. Part of the drop could be dilutional. He is already on PPI and Carafate and his dark stool most likely is from iron supplements that he is receiving. I do not think he needs to have any endoscopy or any intervention emergently. I would continue proton pump inhibitor and Carafate and we will monitor his hemoglobin and hematocrit. Dr. Cook will be available in the morning and decide if he needs to repeat his EGD at a later date, if needed. I have explained my findings and plan to the patient as well as his daughter, reassured them and answered all their questions. cc: Mehdi Mathews MD
--- NOTE | 2018-02-21 13:51 | PROGRESS NOTE ---
DATE: 02/21/2018 INTERVAL HISTORY: The patient with significant melenic stools overnight. Remains mildly confused but no further major somnolence. Pain is better controlled with slight increase in morphine yesterday. Remains on pressors with phenylephrine. Respiratory status stable. Continues to go in and out of atrial fibrillation with largely controlled rate. Was put on dobutamine yesterday for a brief period but shortly thereafter, heart rate began going up markedly and this was discontinued by cardiology. No other acute events overnight. REVIEW OF SYSTEMS: A 12 point review of systems negative except as per interval history. LABS: White count 15.7, initial hemoglobin 8.5 with repeat 8.7. Initial hematocrit 28.5 with repeat 28.5. Sodium 146, potassium 3.2, BUN 15, creatinine 0.8, glucose 148, calcium 7.6. VITAL SIGNS: T-max 99.2, pulse 110, respiratory rate 13, blood pressure 113/74 , O2 saturation 100% on 2 L by nasal cannula. PHYSICAL EXAMINATION: General: No acute distress. Vital Signs: As above. HEENT: Normocephalic, atraumatic. Moist mucous membranes. Neck: No cervical adenopathy. Cardiovascular: Appears to be going in and out of atrial fibrillation. Occasionally, sometimes regular and sometimes irregular. Mildly tachycardic. Pulmonary: Scattered rhonchi, essentially unchanged. No accessory muscle use or increased work of breathing. Abdomen: Soft, nontender, nondistended. Bowel sounds positive. Extremities: Peripheral pulses intact. No clubbing or cyanosis. Marked bilateral lower extremity edema, minimally improved. Marked right upper extremity edema, unchanged. Neurologic: Cranial nerves 2-12 grossly intact. Globally weak but no focal deficits. Psychiatric: Normal mood and affect. Awake, alert, and oriented to person and place but not time. Still following commands and conversing appropriately. Skin: Multiple small ulcers, unchanged. No new rashes or lesions identified. ASSESSMENT AND PLAN: 1. Acute hypoxic respiratory failure secondary to pneumonia and acute on chronic congestive heart failure. Oxygenation pretty stable. This is much improved from admission and stable over the last several days. Chest x-ray with only very slight pulmonary edema but relatively clear. Lasix held yesterday but cardiology restarting today. Monitor closely. 2. Septic shock, likely related to pneumonia and congestive heart failure, as above. Remains on phenylephrine with adequate blood pressures but no success in weaning pressors so far. Tried on dobutamine briefly overnight but this was not tolerated. Continue monitoring in the intensive care unit. 3. Right upper extremity deep venous thrombosis. Patient with significant bilateral lower extremity swelling and right upper extremity swelling. Ultrasound of the right upper extremity showing fairly extensive clot but preliminary report on bilateral lower extremity Dopplers negative for clot. Initially started on Lovenox but patient with significant melena and mild decrease in blood counts today. Repeat hemoglobin and hematocrit are fairly stable but it appears likely that the patient's peptic ulcer has started bleeding again. Holding Lovenox again for now. We will check CTA to rule out pulmonary embolism as a cause of his ongoing hypotension. If negative, then we will leave off of anticoagulation for now. If CTA is positive, then we will likely restart on a heparin drip which can be monitored more closely and turned off more quickly if more significant bleeding develops. 4. Gastrointestinal bleed. Esophagogastroduodenoscopy shortly after admission showing esophagitis, gastritis, and superficial antral ulcer. Blood count is somewhat down, although repeat today is stable. Melenic stools overnight and this morning. Likely bleeding again with acute posthemorrhagic anemia. Holding Lovenox as above. Monitor closely. 5. Diabetes mellitus, reasonable control on current regimen. Continue sliding scale insulin. 6. Acute kidney injury, resolved at this point. Monitor labs. 7. Metabolic encephalopathy, multifactorial with underlying cirrhosis, acute illness, pain, and anxiety medications. Overall improved, although he is frequently mildly confused. Continue monitoring. 8. Pain management. Patient with chronic pain. Also pain associated with limb swelling. Significantly improved by a slightly higher dose of morphine without the somnolence that he had with Dilaudid. We will continue that at this time. 9. Deep venous thrombosis prophylaxis. Has been on Lovenox. We will likely transition to sequential compression devices, given current bleeding. 10. Critical care time. Approximately 50 minutes of critical care time was spent examining the patient, reviewing labs, discussing events with nursing staff, and making medical decisions. 11. Disposition. Patient remains critically ill in the intensive care unit with severely low blood pressure, heart failure, deep venous thromboses, and bleeding. Discussed with family the critical nature of his condition and the difficulty of decision making regarding anticoagulation with both active clot and tenuous respiratory status but also gastrointestinal bleeding. They expressed understanding and wish to continue all treatments. 50 minutes critical care time spent immediately available to the patient, examining the patient, reviewing labs and images, discussing overnight events with nursing, and making medical decisions. VALERY
[2018-02-21] MEDS ORDERED: ALBUMIN 25% IV ONE (14:11)
[2018-02-21] MEDS: LEVOPHED 8 MG in D5 1/2 NS 250 ML IV SCH ×2 (14:33→20:58)
[2018-02-21 14:59] LABS: HEMATOCRIT 24.7 % (42.0-52.0); HEMOGLOBIN 7.4 g/dL (14.0-18.0)
[2018-02-21] MEDS ORDERED: NS 500 ML ONE (16:56)
--- NOTE | 2018-02-21 17:37 | Diag Imaging Result Doc PS360 ---
CT ANGIOGRM PULMONARY ARTERIES - 02/21/2018 INDICATION: DVT, resp failure. ? PTE. CHF, cirrhosis. TECHNIQUE: Axial CT images were obtained after administering intravenous contrast. Coronal MIP images were generated. COMPARISON: Chest x-ray from yesterday FINDINGS: There are several acute pulmonary emboli most notably in the left upper lobe and right lower lobe pulmonary arteries. These involve lobar and segmental pulmonary arteries. Heart size is top normal. There are moderate bilateral pleural effusions. There is mild to moderate ascites in the upper abdomen. No adenopathy. There are hazy bilateral infiltrates in the lung bases that are nonspecific. There are moderate degenerative changes of the spine. No acute or suspicious bony lesion. There is a right PICC line in good position. IMPRESSION: 1. Numerous acute pulmonary emboli. 2. Cardiomegaly. Bibasilar infiltrates/edema. Pleural effusions. 3. Moderate ascites. 4. This report was discussed with Mariangel in the ICU on 02/21/2018 at 5:30 PM and was readback. This exam was performed using automated exposure control, adjustment of mA or kV according to patient size, and/or use of iterative reconstruction technique Electronically signed by Timi Haskins 02/21/2018 5:34 PM
[2018-02-21] MEDS: VANCOMYCIN 2.2 GM in NS 500 ML IV SCH (18:47)
[2018-02-21] MEDS ORDERED: D50W SYRINGE ONE (20:03)
[2018-02-21] MEDS ORDERED: D50W SYRINGE IV ONE (20:11)
[2018-02-21] MEDS: HEPARIN 25,000 UNITS/D5W 25,000 UNIT/250 ML IV.SOLN IV SCH (20:12)
[2018-02-21] MEDS ORDERED: D50W SYRINGE IV PRN (21:07)
[2018-02-22] MEDS: ZOSYN 3.375 GM in NS 50 ML IV SCH ×5 (00:51→20:17)
[2018-02-22] MEDS: MORPHINE IV PRN ×6 (01:00→23:06)
[2018-02-22 02:50] LABS: INR 1.35; PROTIME 17.7 Seconds (11.0-16.0)
[2018-02-22 03:01] LABS: HEMOGLOBIN 7.7 g/dL (14.0-18.0)
[2018-02-22 03:03] LABS: AGAP 10; ALBUMIN 2.5 g/dL (3.5-5.0); ALKALINE PHOSPHATASE 55 U/L (32-122); BUN 15 mg/dL (8-22); CALCIUM 7.6 mg/dL (8.8-10.2); CHLORIDE 105 mmol/L (98-107); COSMO 290; CREATININE 0.9 mg/dL (0.7-1.2); ESTIMATED GFR > 60; GLUCOSE 108 mg/dL (70-104); GOT 7 U/L (10-34); GPT 6 U/L (10-44); POTASSIUM 3.1 mmol/L (3.5-5.1); SODIUM 145 mmol/L (136-145); TCO2 30 mmol/L (25-35); TOTAL BILIRUBIN 1.48 mg/dL (0.20-1.00); TOTAL PROTEIN 4.9 g/dL (6.3-8.3)
[2018-02-22] MEDS: CARAFATE LIQUID PO SCH ×4 (03:26→20:20)
[2018-02-22] MEDS: DUONEB (A & A) INH SCH ×6 (03:35→23:57)
[2018-02-22] MEDS: 1/2 NS 500 ML IV SCH (05:46)
[2018-02-22] MEDS: PROTONIX IV SCH ×2 (05:51→17:23)
[2018-02-22] MEDS: HUMULIN R SUBQ SCH ×4 (06:34→20:18)
[2018-02-22] MEDS: SYNTHROID PO SCH (06:35)
[2018-02-22] MEDS ORDERED: NS 250 ML IV PRN (08:10)
[2018-02-22] MEDS: COZAAR PO SCH (08:23)
[2018-02-22] MEDS: DULCOLAX PR SCH ×2 (08:24→20:18)
[2018-02-22] MEDS: ICAR-C PO SCH ×2 (08:36→20:20)
[2018-02-22] MEDS: LANOXIN PO SCH (08:36)
[2018-02-22] MEDS: POTASSIUM CHLORIDE 20 MEQ/SWI 20 MEQ/100 ML IVPB IV SCH ×2 (08:36→10:28)
[2018-02-22] MEDS: LASIX IV SCH ×2 (08:36→20:21)
[2018-02-22] MEDS: CENTRUM SILVER PO SCH (08:36)
[2018-02-22] MEDS: KLOR-CON PO SCH (08:45)
--- NOTE | 2018-02-22 10:56 | PROGRESS NOTE ---
DATE: 02/22/2018 SUBJECTIVE: Patient is resting in bed. The patient's family present at bedside. I spoke to the patient's daughter, and patient's and also spoke with the RN. Patient had been having maroon stools over the last 24 hours. He had a pulmonary arteriogram done yesterday, which showed evidence of numerous acute pulmonary emboli, cardiomegaly, moderate ascites. At that time, he was started on heparin drip. This worsened the GI bleeding. We had done an EGD on him on 02/15/2018, which showed evidence of severe esophagitis in mid and distal esophagus LA grade 4 and a small superficial ulcer in the gastric antrum. In the interim, over the weekend, he has been given 3 units of blood. The patient denies any vomiting blood. OBJECTIVE: Vital signs: Temperature 98.7 degrees, pulse rate of 118, respiratory rate of 13, blood pressure 103/75, saturating 99% on 2 L nasal cannula. Body weight of 231 pounds, 11.2 ounces. BMI 29 kg/m sq. General Appearance: Moderately-built, lying in bed, in no acute distress. HEENT: Positive pallor. No icterus. Neck: Supple. Abdomen: Anasarca, positive ascites. Mild distention noted. No rebound or guarding. Extremities: Bilateral lower extremity edema noted. There are some wounds in the lower extremities, which are chronic. Neuro Jacob: He was awake, alert. Answers simple questions. LABS: Hemoglobin and hematocrit is 7.7 and 25, white count of 15.76, platelet count of 277,000. Sodium of 145, potassium 3.1, chloride 105, bicarb of 30, anion gap 10, BUN of 15, creatinine 0.9, glucose of 108, calcium is 7.6, total bilirubin is 1.48. AST 7, ALT 6, alkaline phosphatase 55, total protein 4.9, albumin of 2.5. His PT of 17.7, INR 1.35, PTT of 74.6. His chronic liver disease workup including acute hepatitis panel, ROBERT, antimitochondrial antibody, anti smooth muscle antibody were negative. His iron studies showed a low iron level, and his alpha 1 antitrypsin level is 221 which is high. Ceruloplasmin level is 35.7, which is high. Blood culture x2 negative at 48 hours on 02/19/2018. IMPRESSION AND PLAN: 1. Gastrointestinal bleeding. This is likely secondary from severe esophagitis and possibly from the stomach. This has gotten worse because of the heparin and underlying liver disease. I have discussed the options of doing an esophagogastroduodenoscopy with the patient and family at bedside. The patient has multiple medical comorbid conditions in the form of severe cardiomyopathy, anasarca, diabetes, and congestive heart failure, pneumonia, and sepsis. The patient's family will think about it and let us know. We will tentatively schedule the patient for EGD tomorrow. In the interim, we will continue supportive care. We will keep him on Protonix and Carafate, and transfuse to keep hematocrit more than 27%. His heparin has been withheld. He will need serial blood counts and transfuse as needed. 2. Congestive heart failure. Cardiomyopathy. This is being monitored by the cardiology team. 3. Acute hypoxic respiratory failure secondary to pneumonia and acute on chronic congestive heart failure. He is improving. 4. Anasarca. He is getting diuresed with a Lasix and albumin. 5. Gastrointestinal prophylaxis with proton-pump inhibitors. 6. Bowel regimen with Dulcolax. 7. Anemia. He is on iron C b.i.d. Will transfuse as needed. 8. Pneumonia and sepsis. He is on vancomycin and Zosyn. 9. New diagnosis of pulmonary embolism. He was started on heparin, which has to be withheld because of the gastrointestinal bleeding. 10. Disposition. The patient is critically ill in the intensive care unit. We have discussed the criticality of the situation with the patient's family and the patient. We will follow along. We will schedule for esophagogastroduodenoscopy tomorrow under anesthesia Dr. Lassiter. The above plans with the patient and family and the nursing staff and all questions answered. Please call us with any questions. cc: MD López Aguillon MD
--- NOTE | 2018-02-22 10:57 | EKG Report ---
Test Performed on : 02/21/2018 3:29:23 PM Test Reason : ED. NO EKG ORDER FOR MUSE Blood Pressure : / mmHG Vent. Rate : 151 BPM Atrial Rate : 227 BPM P-R Int : 000 ms QRS Dur : 076 ms QT Int : 256 ms P-R-T Axes : 000 006 178 degrees QTc Int : 405 ms Atrial flutter. with variable AV block. Possible Inferior infarct (cited on or before 09-FEB-2018) Anterolateral infarct (cited on or before 09-FEB-2018) Abnormal ECG When compared with ECG of 11-FEB-2018 08:26, Atrial flutter. has replaced Atrial fibrillation. Questionable change in initial forces of Lateral leads Unconfirmed Result
[2018-02-22] MEDS: LEVOPHED 8 MG in D5 1/2 NS 250 ML IV SCH (12:57)
[2018-02-22] MEDS: HEPARIN 25,000 UNITS/D5W 25,000 UNIT/250 ML IV.SOLN IV SCH (12:58)
--- NOTE | 2018-02-22 15:17 | PROGRESS NOTE ---
DATE: 02/22/2018 INTERVAL HISTORY: Yesterday evening, CTA showed significant pulmonary emboli. The patient was started on heparin drip despite a risk of bleeding. However, the patient did develop significant GI bleeding and heparin had to be discontinued. After 2 units of blood, hemoglobin and hematocrit were unchanged. The patient remains mildly confused, but awake, alert, conversant, and largely cooperative. No new complaints. Long discussion with family this morning regarding very poor prognosis in light of extensive pulmonary emboli with likely acute cor pulmonale as the cause of his shock, as well as GI bleeds any time anticoagulation is initiated. The family is understanding of the situation, but wishes to discuss options with other providers. Discussed code status, but family was reluctant to make him DNR at this time. They will discuss further with other family members who were not present, and let us know. REVIEW OF SYSTEMS: Twelve-point review of systems negative except as per interval history. LABORATORY DATA: Hemoglobin 7.7, hematocrit 25. INR 1.3. Sodium 145, potassium 3.1, BUN 15, creatinine 0.9, glucose 172. IMAGING: CTA chest 02/21/2018 showing several acute pulmonary emboli, most notably in the left upper lobe and right lower lobe. Moderate bilateral pleural effusions. Mild to moderate ascites in the upper abdomen. Hazy bilateral infiltrates in the lung bases that are nonspecific. PHYSICAL EXAMINATION: Vital Signs: T-max 98.7 degrees, pulse 117, respirations 17, blood pressure 120/80, O2 saturation 100% on 4 L by nasal cannula. General: No acute distress. Vitals as above. HEENT: Normocephalic, atraumatic. Moist mucous membranes. No cervical adenopathy. Cardiovascular: Irregular rhythm. Occasional mild tachycardia, but largely normal rate. Pulmonary: Scattered rhonchi remain. No accessory muscle use or increased work of breathing. Abdomen: Soft, nontender, nondistended. Bowel sounds positive. Extremities: Peripheral pulses intact. No clubbing or cyanosis. Marked bilateral lower extremity edema, minimally improved. Marked right upper extremity edema, unchanged. Neurologic: Cranial nerves 2-12 grossly intact. Significant global weakness, but no focal deficits identified. Psychiatric: Normal mood and affect. Awake, alert, oriented to person, but not place or time. Follows commands well and most responses to questions are largely appropriate. Skin: Multiple small ulcers of the lower extremities and feet, unchanged. No new rashes or lesions identified. ASSESSMENT AND PLAN: 1. Acute hypoxic respiratory failure secondary to pneumonia, acute on chronic congestive heart failure, and pulmonary emboli. Oxygenation relatively stable. Improved from admission. Remains on antibiotics and Lasix. Attempted on 2 different occasions to start blood thinners, but these had to be stopped because of gastrointestinal bleeding. 2. Shock, initially thought to be septic shock related to pneumonia. Now favor acute cor pulmonale related to multiple pulmonary emboli, possibly worsened by patient's congestive heart failure. Remains on phenylephrine with adequate blood pressures, but little success in weaning pressors so far. Tried on dobutamine briefly, but patient did not tolerate. Unable to anticoagulate as above. 3. Right upper extremity deep venous thrombosis and bilateral pulmonary emboli. Unable to anticoagulate because of gastrointestinal bleeding. Prognosis at this point likely quite poor. Extensive discussion with family as above. Continue monitoring. 4. Gastrointestinal bleed and acute post hemorrhagic anemia. Original EGD showing off shortly after admission showing esophagitis, gastritis, and superficial antral ulcer. Blood counts were stable prior to identification of right upper extremity DVT. After this was identified, he was placed on Lovenox, but began to have dropping blood counts and melena, so this was stopped. Blood counts again stabilized. When pulmonary emboli were identified, he was started on heparin drip, but almost immediately began to have melena and bright red blood per rectum. The heparin was again stopped. Options are limited. The family wishes to discuss options with Gastroenterology prior to making a decision about code status and possible comfort care. 5. Diabetes mellitus. Reasonable control on current regimen. Continue sliding scale insulin. 6. Acute kidney injury, resolved. Monitor labs. 7. Metabolic encephalopathy, multifactorial with underlying cirrhosis, acute illness, and anxiety medications. Infection overall improved, although he is mildly confused essentially at all times. 8. Pain management. Patient with chronic pain and also pain associated with limb swelling and other medical issues. Significantly improved on slightly higher dose of morphine. Continue and monitor. 9. Deep vein thrombosis prophylaxis. Sequential compression devices. DISPOSITION: The patient remains critically ill in the ICU. Continued shock requiring pressors, new multiorgan system failure with cirrhosis, significant congestive heart failure, and pulmonary emboli. Shock most likely related primarily to acute cor pulmonale with pulmonary emboli. We have been completely unable to anticoagulate as he begins having major GI bleeding any time we do. Options limited and prognosis likely grim. Further discussions with family pending.
[2018-02-22 16:08] LABS: HEMATOCRIT 30.5 % (42.0-52.0); HEMOGLOBIN 9.4 g/dL (14.0-18.0)
[2018-02-22] MEDS: VANCOMYCIN 2.2 GM in NS 500 ML IV SCH (17:23)
[2018-02-22 20:19] LABS: HEMATOCRIT 27.9 % (42.0-52.0); HEMOGLOBIN 8.8 g/dL (14.0-18.0)
[2018-02-22] MEDS: PROTONIX 80 MG in NS 80 ML IV SCH (22:50)
[2018-02-23] MEDS: ZOSYN 3.375 GM in NS 50 ML IV SCH ×4 (02:22→19:24)
[2018-02-23] MEDS: MORPHINE IV PRN ×8 (02:22→23:46)
[2018-02-23] MEDS: CARAFATE LIQUID PO SCH ×4 (02:22→19:24)
[2018-02-23] MEDS: DUONEB (A & A) INH SCH ×6 (03:42→23:35)
[2018-02-23] MEDS: 1/2 NS 500 ML IV SCH (04:23)
[2018-02-23 05:23] LABS: HEMATOCRIT 28.6 % (42.0-52.0); HEMOGLOBIN 8.7 g/dL (14.0-18.0)
[2018-02-23 05:46] LABS: AGAP 9; BUN 13 mg/dL (8-22); CALCIUM 7.1 mg/dL (8.8-10.2); CHLORIDE 104 mmol/L (98-107); COSMO 291; CREATININE 0.8 mg/dL (0.7-1.2); ESTIMATED GFR > 60; GLUCOSE 142 mg/dL (70-104); POTASSIUM 3.4 mmol/L (3.5-5.1); SODIUM 145 mmol/L (136-145); TCO2 32 mmol/L (25-35)
[2018-02-23] MEDS: HUMULIN R SUBQ SCH ×4 (06:06→20:17)
[2018-02-23] MEDS: SYNTHROID PO SCH (06:07)
[2018-02-23] MEDS: KLOR-CON PO SCH (08:26)
[2018-02-23] MEDS: ICAR-C PO SCH ×2 (08:26→20:17)
[2018-02-23] MEDS: LASIX IV SCH ×2 (08:26→20:31)
[2018-02-23] MEDS: LANOXIN PO SCH (08:26)
[2018-02-23] MEDS: CENTRUM SILVER PO SCH (08:26)
[2018-02-23] MEDS: COZAAR PO SCH (08:27)
[2018-02-23] MEDS: DULCOLAX PR SCH ×2 (08:27→20:17)
[2018-02-23 08:30] LABS: HEMATOCRIT 32.4 % (42.0-52.0); HEMOGLOBIN 10.2 g/dL (14.0-18.0)
[2018-02-23] MEDS: POTASSIUM CHLORIDE 20 MEQ/SWI 20 MEQ/100 ML IVPB IV SCH ×2 (08:30→10:15)
[2018-02-23] MEDS: PROTONIX 80 MG in NS 80 ML IV SCH ×2 (08:48→17:19)
[2018-02-23] MEDS: LEVOPHED 8 MG in D5 1/2 NS 250 ML IV SCH (10:15)
--- NOTE | 2018-02-23 11:36 | Extremity Venous Study ---
PROCEDURE NAME: Venous U/S Bilateral Legs - 02/19/2018 REFERRING PHYSICIAN: Dani Menezes MD. READING PHYSICIAN: Vicente Sanchez MD. NAIL MACHINE OPERATOR: Broderick Claros RVT. INDICATION: Leg swelling. FINDINGS: Deep and superficial veins of both legs were imaged. They are compressible, patent and without thrombus. There are pulsatile signals noted and significant swelling as noted by the rv repair technician. INTERPRETATION: No evidence of DVT or SVT in either lower extremity. The waveforms and edema may correlate clinically with congestive heart failure. cc: Vicente Sanchez MD
--- NOTE | 2018-02-23 14:49 | PROGRESS NOTE ---
DATE: 02/23/2018 INTERVAL HISTORY: Patient remains on pressors. One additional melenotic bowel movement this morning but hemoglobin and hematocrit appears stable status post transfusion. Currently NPO for possible EGD later today. No other acute events overnight. REVIEW OF SYSTEMS: 12 point review of systems negative except as per interval history . LABS: Initial hemoglobin and hematocrit 8.7 and 28.6 repeat hemoglobin and hematocrit 10.2, 32.4. Sodium 145, potassium 3.4, BUN 13, creatinine 0.8, glucose 154. VITALS: T-max 98.6 , pulse 120, respirations 14, blood pressure 122/85, O2 saturation 100% on 4 L by nasal cannula. PHYSICAL EXAM: General: No acute distress. Vitals as above. HEENT: Normocephalic, atraumatic, no cervical adenopathy . Cardiovascular: Irregular and mildly tachycardic. No murmurs noted. Pulmonary: Scattered rhonchi unchanged but still no accessory muscle use increased work of breathing. Abdomen: Soft, nontender, nondistended. Bowel sounds present. Extremities: Peripheral pulses intact. No clubbing or cyanosis. Lower extremity edema mildly improved, right upper extremity edema stable . Neurologic: Cranial nerves 2 through 12 grossly intact, globally weak but no focal deficits identified. Psychiatric: Normal mood and affect awake, alert, remains oriented only to person but responses are largely appropriate and he follows commands well. Skin: Multiple small ulcers of the lower extremities and feet unchanged, no new rashes or lesions identified. ASSESSMENT AND PLAN: 1. Acute hypoxic respiratory failure multifactorial with pneumonia, acute on chronic congestive heart failure and bilateral pulmonary emboli. Oxygenation still requiring 3 to 4 L of oxygen but relatively stable. Antibiotics and Lasix. Attempted to start blood thinners twice but these have to be stopped because of gastrointestinal bleeding. 2. Shock likely acute cor pulmonale related to emboli. Remains on phenylephrine with adequate blood pressures but no success in weaning pressures so far. Tried dobutamine briefly but patient did not tolerate and they will change and coagulate as above prognosis appearing to be quite poor at this point. 3. Right upper extremity acute deep vein thrombosis and acute bilateral pulmonary embolism. Unable anticoagulate because of gastrointestinal bleeding. Again discussed with family and children seem to be on board with do not resuscitate but patient's who is the primary decision maker is not yet. 4. Gastrointestinal bleeding and acute posthemorrhagic anemia original EGD showing esophagitis, gastritis and superficial antral ulcer. Blood counts stabilized but subsequently when blood thinners were started for clots as above patient again began to bleed. GI following and discussing possible repeat EGD but family debating whether they want to proceed given likely low yield and possible risk of ending up on the ventilator . 5. Diabetes mellitus reasonable control on current regimen continue sliding scale insulin. 6. Acute kidney injury remains resolved. 7. Metabolic encephalopathy multifactorial with underlying cirrhosis, acute illness. Remains mildly confused at all times which may be baseline but acute encephalopathy much improved. 8. Chronic pain reasonably controlled on current morphine, continue to monitor. 9. Deep vein thrombosis prophylaxis SCDs. 10. Disposition. Patient remains critically ill in ICU. Continued shock requiring pressors. Multiorgan system failure with cirrhosis, underlying congestive heart failure and now with bilateral pulmonary emboli which we are unable to treat with anticoagulation. Prognosis likely grim. Family debating making patient do not resuscitate and/or comfort care. Will continue to discuss with family. 11. Atrial fibrillation. Patient has been has been in and out of atrial fibrillation for most of his hospitalization. Has been largely rate controlled but heart rate is creeping up a little bit today. Blood pressure too low for Dilt to be a good option. Given only mildly elevated pulse will defer additional medications to Cardiology. Addendum: after further discussion later in the day, family and patient have elected for him to go DNR and plan on moving to full comfort care tomorrow. hospice has been consulted and family/patient will be speaking with them shortly. [facility] MEDICAL CENTERHenri
[2018-02-23] MEDS: VANCOMYCIN 2.2 GM in NS 500 ML IV SCH (17:19)
[2018-02-24] MEDS: CARAFATE LIQUID PO SCH ×4 (03:15→20:21)
[2018-02-24] MEDS: ZOSYN 3.375 GM in NS 50 ML IV SCH ×2 (03:15→09:27)
[2018-02-24] MEDS: MORPHINE IV PRN ×5 (03:15→20:50)
[2018-02-24] MEDS: 1/2 NS 500 ML IV SCH (03:17)
[2018-02-24] MEDS: DUONEB (A & A) INH SCH ×5 (03:30→22:07)
[2018-02-24] MEDS: PROTONIX 80 MG in NS 80 ML IV SCH ×2 (04:45→08:12)
[2018-02-24] MEDS: HUMULIN R SUBQ SCH ×4 (06:57→20:22)
[2018-02-24] MEDS: SYNTHROID PO SCH (06:57)
[2018-02-24 08:26] LABS: BASO# 0.12 X1000 (0.0-0.2); BASO% 0.8 % (0.0-0.8); EOS# 0.31 X1000 (0.0-0.7); HEMATOCRIT 35.1 % (42.0-52.0); HEMOGLOBIN 10.8 g/dL (14.0-18.0); IMM GRAN# 0.19 X1000 (0.0-0.04); IMM GRAN% 1.2 % (0.0-0.5); LYMPH# 2.04 X1000 (1.2-3.4); LYMPH% 12.8 % (20.5-51.1); MCH 28.4 PG (27-31); MCHC 30.8 g/dL (33-37); MCV 92.4 FL (81-99); MONO# 2.09 X1000 (0.11-0.59); MONO% 13.2 % (1.7-9.3); MPV 10.3 FL (7.4-10.4); NEUT# 11.14 X1000 (1.4-6.5); PLT 265 X1000 (130-400); RDW 17.7 % (11.5-14.5); WBC 15.89 X1000 (4.8-10.8)
[2018-02-24 08:35] LABS: AGAP 11; BUN 13 mg/dL (8-22); CALCIUM 7.3 mg/dL (8.8-10.2); CHLORIDE 100 mmol/L (98-107); COSMO 285; CREATININE 0.7 mg/dL (0.7-1.2); ESTIMATED GFR > 60; GLUCOSE 132 mg/dL (70-104); POTASSIUM 3.8 mmol/L (3.5-5.1); SODIUM 142 mmol/L (136-145); TCO2 31 mmol/L (25-35)
[2018-02-24 08:53] LABS: BANDS 2 % (0-1); EOS 2 % (1-10); LYMPHS 20 % (21-51); MONO 8 % (1-9); SEGS 64 % (42-75)
[2018-02-24] MEDS: LANOXIN PO SCH (09:20)
[2018-02-24] MEDS: COZAAR PO SCH (09:21)
[2018-02-24] MEDS: KLOR-CON PO SCH (09:22)
[2018-02-24] MEDS: CENTRUM SILVER PO SCH (09:22)
[2018-02-24] MEDS: ICAR-C PO SCH (09:22)
[2018-02-24] MEDS: LASIX IV SCH (09:27)
[2018-02-24] MEDS: DULCOLAX PR SCH (09:32)
--- NOTE | 2018-02-24 14:47 | PROGRESS NOTE ---
DATE: 02/24/2018 INTERVAL HISTORY: Some further bloody/melanotic bowel movements yesterday afternoon, but none overnight. Again, discussed situation with patient and family and they are continuing with plans to make patient comfort care. Pressors discontinued this morning. I am removing all medications not for comfort, discontinue labs. Will monitor in ICU for a few hours. If patient appears to be decompensating rapidly then we will leave him there. Otherwise, we will plan on moving patient to a regular room later today. Pain well controlled. No other complaints. No other acute events overnight. REVIEW OF SYSTEMS: Twelve point review of systems negative except as per Interval History. VITALS: T-max 99.0, pulse 117, respirations 16, blood pressure 78/53, O2 sat 96% on 3 L by nasal cannula. PHYSICAL EXAMINATION: General: No acute distress. Vitals: As above. HEENT: Normocephalic, atraumatic. No cervical adenopathy. Cardiovascular: Irregular and remains bilaterally tachycardic. Pulmonary: Scattered rhonchi essentially unchanged. No increased work of breathing. Abdomen: Soft, nontender, nondistended. Bowel sounds present. Extremities: Peripheral pulses intact. No clubbing or cyanosis. 2+ lower extremity edema and 3+ right upper extremity edema, essentially unchanged. Neurologic: Cranial nerves 2-12 grossly intact. Globally weak, but no focal deficits. Psychiatric: Normal mood and affect. Awake, alert, but remains oriented to person only. Responses are largely appropriate and follows commands well. Converses appropriately. Skin: Multiple small ulcers on lower extremities appear unchanged. ASSESSMENT AND PLAN: Patient with multiple major issues, including acute hypoxic respiratory failure with pneumonia, acute on chronic systolic congestive heart failure with bilateral cirrhosis and bilateral pulmonary emboli. Multiple attempts to anticoagulate resulted in repeated GI bleeding. Also with shock, likely acute cor pulmonale related to pulmonary emboli, as above. Was will continue to require phenylephrine, but now off pressors as patient and family have elected to move to comfort care. Remains in atrial fibrillation. As above, will discontinue medications not for comfort and if patient does not decline rapidly, then we will transition to a regular hospital room. Patient appears fairly comfortable on current pain medicine right now. Depending on his needs for pain and anxiety medication may be re-evaluated for [facility] versus going home with hospice in 24 to 48 hours if he is relatively stable.
[2018-02-24] MEDS: ATIVAN IV PRN (22:26)
[2018-02-25] MEDS: DUONEB (A & A) INH SCH ×7 (02:56→23:44)
--- NOTE | 2018-02-25 04:54 | PROGRESS NOTE ---
DATE: 02/24/2018 SUBJECTIVE: Patient is resting in bed. He was talking to his preacher. He is on comfort care. I spoke to the patient's and patient's son. He is still having liquid maroon old blood stools. No vomiting per the records. EGD was cancelled yesterday per the family wishes. OBJECTIVE: Vital signs: Temperature 98 degrees, pulse rate 117, respiratory rate of 10, blood pressure of 86/54, saturating 100% on 3 nasal cannula. Physical exam was not performed. LABS: His hemoglobin and hematocrit is 10.8 and 35.1, white count of 15.89, platelet count of 265. Sodium of 142, potassium 3.8, chloride 100, bicarb 31, anion gap 11, BUN of 13, creatinine 0.7, glucose of 142, calcium 7.3. IMPRESSION AND PLAN: 1. Gastrointestinal bleeding. He is on comfort care. He continues on Carafate. 2. The patient has multiple issues including respiratory failure, pneumonia, acute on chronic systolic, congestive heart failure, cirrhosis, and bilateral pulmonary emboli , and atrial fibrillation. The patient is being considered for inpatient versus outpatient hospice, per the primary care team. We will sign off at this point. Please call us with any further questions. cc: MD López Aguillon MD MTDHenri
[2018-02-25] MEDS: CARAFATE LIQUID PO SCH ×3 (05:18→16:25)
[2018-02-25] MEDS: MORPHINE IV PRN ×5 (08:32→21:51)
[2018-02-25] MEDS: HUMULIN R SUBQ SCH ×3 (08:46→18:46)
[2018-02-25 20:38] VITALS: BP 100/64
[2018-02-25] MEDS ORDERED: PROTONIX IV SCH (21:45)
[2018-02-26] MEDS: CARAFATE LIQUID PO SCH ×3 (01:58→08:44)
[2018-02-26] MEDS: MORPHINE IV PRN ×5 (01:58→12:47)
[2018-02-26] MEDS: ATIVAN IV PRN ×2 (02:10→10:29)
[2018-02-26] MEDS: DUONEB (A & A) INH SCH (03:58)
[2018-02-26] MEDS: HUMULIN R SUBQ SCH ×3 (04:18→12:04)
--- NOTE | 2018-02-26 04:35 | PROGRESS NOTE ---
DATE: 02/25/2018 SUBJECTIVE: The patient is resting in bed comfortably. He awakens, but his pain seems to be adequately controlled. OBJECTIVE: Vital Signs: Blood pressure 102/62, heart rate 115, temperature was 97.5 degrees, 96% on 4 L. Cardiovascular: Regular rate and rhythm. Pulmonary: Bilateral breath sounds. Clear to auscultation. GI: Soft, nontender, nondistended. Bowel sounds are positive. PROBLEM LIST: 1. Acute hypoxic respiratory failure. 2. Pneumonia. 3. Acute congestive heart failure. 4. Cirrhosis. 5. Shock. 6. Could not be anticoagulated due to bleeding. 7. [id number] cor pulmonale related to PE. In any case, the patient was taken off pressors and made comfort care. At this point, he will be continued to manage comfort care, and we will see how he does. Right now, the plan is to let him go tomorrow with hospice, and we will get those medications requested, and plan for discharge tomorrow if stable. cc: Marquez Perdomo MD
--- NOTE | 2018-02-27 09:46 | DISCHARGE SUMMARY ---
ADMISSION DATE: 02/09/2018 DISCHARGE DATE: 02/26/2018 DISCHARGE DIAGNOSES: 1. Progressive encephalopathy. 2. Acute renal failure. 3. Acute renal failure with chronic renal failure. 4. Pneumonia. 5. Acute congestive heart failure with exacerbation. 6. Coagulopathy. 7. Cor pulmonale. PROCEDURES: EGD. CONSULTATIONS: 1. Dr. Cook of GI. 2. Dr. Orantes of Cardiology. HISTORY: Briefly, this is a 72-year-old male with history of systolic congestive heart failure, diabetes, hypothyroidism, and hepatitis. He came in with shortness of breath and malaise. He had an EF per echo of 20%. He was admitted for CHF exacerbation. He had acute kidney injury. He had new onset atrial fibrillation. He had elevated liver enzymes with concern over possible cirrhosis. He had diastolic heart failure, but I do not think he had diastolic as his EF is low. He could not be anticoagulated because of GI bleed. He is on lisinopril Toprol, and Aldactone. He was improving and had anasarca. There were plans made to go to rehab. He had a CT done on the which showed anasarca, pleural effusions, and what was felt to be cirrhosis, and at that time a fecal impaction. Dr. Lassiter was consulted, and recommended EGD, which he underwent on the , which showed esophagitis, gastritis, and superficial ulcer. He had a myocardial perfusion scan which showed an EF of 13%, and dilated ventricle. He had a large fixed defect but no reversible defects. Fortunately, it sounds like he started to get worse. He was transferred to the ICU because of bleeding. He was felt to have cirrhosis with unclear etiology although I am suspicious for MCGUIRE. His modified swallow showed aspiration risk at least a slight aspiration risk. He started developing worsening renal respiratory failure on the requiring 2 to 3 L of oxygen. GI bleed improved. He has been placed on Protonix. His cirrhosis workup was negative. Venous Doppler's were done on the which was negative. Hypernatremia. He was maintained on antibiotics. Lasix was discontinued because of general dehydration. He had been on Cristino- Synephrine which was a drip. He continues to stabilize. Pulmonary arteriogram showed numerous acute PE's despite no DVT which was going to be a difficult process because he had gastrointestinal bleeding and anticoagulation would be difficult in that setting. He had heart failure and he had multiple issues. He does continue to deteriorate unfortunately with shock. He was on Cristino-Synephrine, then dobutamine, but he does not tolerate it. When he was placed on a heparin drip, he started having melena. They had to discuss the case with GI before deciding about long-term decisions. He had a right upper extremity DVT that was noted, but could not anticoagulate, and I guess since he had an upper extremity DVT, IVC filter would be fairly useless in preventing further emboli or embolization. GI discussed with the patient Dr. Cook, and they decided on hospice on the . We had further discussion and he decided on hospice which he was going to go home, and he was discharged on the on hospice. I gave him a prescription for Ativan and Roxanol. There may have been some prescriptions arranged by the outpatient hospice which was [facility]. TIME SPENT: 35 minute discharge. Family aware. Discussed prognosis both short and exterminator. DNR. cc: MD López Saini MD
== END 2018-02-26 13:30 | disposition hospice, home (50) | DRG 291 ==
LOC: SUPCPDRO → ED 12:42 → SUATTDRO 16:09 → EDIPHOLD 16:09 → 3S 02-10 07:19 → 3N 02-10 10:09 → ICU 02-14 15:16 → 3N 02-16 11:17 → ICU 02-17 17:43 → 3N 02-24 20:54
PROVIDERS: ATTEND Internal Medicine
CPT/HCPCS: 36430; 36569; 51702; 51798; 71010; 71045; 71275; 73502; 73630; 74000; 74018; 74177; 74230; 76700; 78452; 80048; 80053; 80061; 80074; 80202; 81001; 82103; 82270; 82390; 82550; 82570; 82607; 82728; 82746; 82805; 82948; 83036; 83516; 83540; 83550; 83721; 83735; 83880; 84153; 84156; 84300; 84436; 84443; 84484; 85014; 85018; 85025; 85027; 85610; 85730; 86038; 86039; 86255; 86850; 86900; 86901; 86920; 87040; 87088; 92611; 93005; 93010; 93017; 93970; 93971; 94640; 94761; 94762; 96365; 96366; 96372; 96375; 97110; 97162; 97166; 97530; 97535; 99285; A9270; A9500; C9113; J0131; J0712; J1170; J1250; J1644; J1650; J1885; J1940; J2060; J2270; J2370; J2405; J2543; J2785; J3370; J3430; J3480; J7040; J7050; P9016; P9047; Q9967; S0164; XXXXX